=== PATIENT | male | born 1945 | race Caucasian/White ===

== ENCOUNTER 2016-12-15 12:43 | Emergency (ER) | payer BC ==
--- NOTE | 2016-12-15 14:15 | DIAGNOSTIC IMAGING REPORT ---
PROCEDURE: CT ABDOMEN/PELVIS W/O CONTRAST INDICATION: Left flank pain, initial encounter TECHNIQUE: Noncontrast axial images were obtained of the entire abdomen and pelvis with sagittal and coronal reformations. COMPARISON: None. FINDINGS: ABDOMEN: 6.5 mm left UVJ/bladder calculus with mild left hydroureteronephrosis. There are two additional nonobstructing left renal calculi (one - 2 mm) and four right renal calculi one - 6 mm). There are bilateral renal cysts. Lung bases are clear. Heart size is normal. Cholecystectomy. Liver, pancreas, spleen and adrenal glands are normal. Severe atherosclerosis of the aorta. There is a 4.3 x 2.4 cm central mesentery dense calcification suggestive of calcified lymph node. Small hiatal hernia. PELVIS: Normal appendix. Minor sigmoid diverticulosis. Enlarged prostate (6 cm). There is urinary bladder wall thickening which may be due to decompression versus inflammatory changes. Trace free fluid. Moderate degenerative changes of the spine. IMPRESSION: 1. 6.5 mm left UVJ/bladder calculus with mild left hydroureteronephrosis 2. Nonobstructing bilateral renal calculi 3. Bilateral renal cysts 4. Cholecystectomy 5. 4.3 x 2.4 cm central mesentery dense calcification suggestive of a calcified lymph node 6. Small hiatal hernia 7. Trace free fluid the pelvis, etiology uncertain 8. Minor sigmoid diverticulosis 9. Enlarged prostate 10. Results discussed with Marianna Griffin. All CT scans at this facility use dose modulation, iterative reconstruction, and/or weight-based dosing when appropriate to reduce radiation dose to as low as reasonably achievable.
--- NOTE | 2016-12-15 14:41 | ED ORDER SUMMARY ---
..... Patient: FABY SOFIA OrderSheet [facility] VisitID: [id number] [place] [address] 71y, M Registration Date/Time: 12/15/2016 ORDER SHEET Weight: 79.3 kg (stated) Allergies: No Known Drug Allergy GENERAL ORDERS: UA-Culture if indicated Urgent (13:04 12/15/2016 JBoardley R.N. per protocol) (Ack 13:05 KHoerner) (13:08 JBoardley R.N.) CT Abd/Pel wo Cont Urgent (13:17 12/15/2016 HBivens A.R.N.P.) (Ack 13:18 KHoerner) (13:20 EHassan R.N.) CBC w Diff Urgent (13:17 12/15/2016 HBivens A.R.N.P.) (Ack 13:18 KHoerner) (13:20 EHassan R.N.) CMP Urgent (13:17 12/15/2016 HBivens A.R.N.P.) (Ack 13:18 KHoerner) (13:20 EHassan R.N.) MEDICATION ORDERS: Toradol IM 30 mg (NOW) (13:17 12/15/2016 HBivens A.R.N.P.) (Cancelled: Other13:23 HBivens A.R.N.P.) IV FLUIDS: IV Saline Lock (13:04 12/15/2016 JBoardley R.N. per protocol) (13:04 JBoardley R.N.) IV NS : initial bolus 1000 mL (1000 mL/hr), then none - (NOW) (13:16 12/15/2016 HBivens A.R.N.P.) (13:21 EHassan R.N.) Toradol IV 30 mg (NOW) (13:23 12/15/2016 HBivens A.R.N.P.) (13:24 EHassan R.N.) Lopressor IV 5 mg (HIGH ALERT MEDICATION, NOW) (13:30 12/15/2016 HBivens A.R.N.P.) (13:36 EHassan R.N.) ORDER SHEET NOTES: [Electronically signed by Shamar Thompson R.N. (15:02 12/15/2016)] [Electronically signed by Marianna Griffin (16:40 12/15/2016)] [Electronically locked/signed by Shamar Thompson R.N. (15:02 12/15/2016)]
--- NOTE | 2016-12-15 14:41 | ED CLINICAL REPORT ---
Clinical Report - Physicians/Mid Levels [facility] [address] [place] [address] 12/15/2016 12:47 Patient: FABY SOFIA Time Seen: 13:07; initial patient contact, initial documentation, patient care assumed. Arrived- By private vehicle. Historian- patient. HISTORY OF PRESENT ILLNESS Chief Complaint: BACK PAIN. Onset was yesterday and it is still present. It was abrupt in onset and has been constant. Modifying factors. Not worsened by anything. Not relieved by anything. It is described as being severe and in the area of the left flank and radiating to the left upper quadrant of the abdomen. The quality is noted to be "pain" and similar to prior episodes. No bladder dysfunction, bowel dysfunction or sensory loss. Additional history - did not take his bp med last night. Patient denies an injury but injury to the head or neck. No other injury. Similar symptoms previously: Twice, as bad. ( feels similar to stones). Recent medical care: Not recently seen/assessed. REVIEW OF SYSTEMS No fever, difficulty with urination, urinary frequency, hematuria or difficulty breathing. No chest pain, abdominal pain, vomiting or diarrhea. All systems otherwise negative, except as recorded above. PAST HISTORY See nurses notes. PROBLEMS: Influenza. Myocardial Infarction. Hypercholesterolemia. --13:02 Shamar Thompson R.N. ADDITIONAL SURGERIES: Cardiac Catheterization. Cholecystectomy. --13:02 Shamar Thompson R.N. Stents. --13:03 Shamar Thompson R.N. SOCIAL HISTORY Heavy tobacco smoker. No alcohol use or drug use. No recent travel. Is a local resident. He lives with spouse. FAMILY HISTORY Negative. ADDITIONAL NOTES The nursing notes have been reviewed with agreement regarding the chief complaint, HPI, ROS, PMH and patient medications and allergies. PHYSICAL EXAM Vital Signs: 12/15/2016 12:59 BP: 225/125. HR: 87. RR: 18. O2 saturation: 98%. Temp: 97.5 F. Pain level now: 5/10. Have been reviewed as abnormal and appear to be correct. Hypertensive. Heart rate normal. Respiratory rate normal. Temperature normal. Oxygen saturation normal. Appearance: Alert. No acute distress. Neck: Normal inspection. Neck nontender. Painless ROM. CVS: Heart sounds normal. Pulses normal. Respiratory: No respiratory distress. Breath sounds normal. Abdomen: No visible injury. Soft and nontender. Bowel sounds normal. No organomegaly. No mass. Back: Normal inspection. No tenderness. Painless ROM. Skin: Skin warm and dry. Normal skin color. No rash. Normal skin turgor. Extremities: Extremities exhibit normal ROM. Extremities nontender. Neuro: Oriented X 3. Mood/affect normal. No motor deficit. No sensory deficit. LABS, X-RAYS, AND EKG CT Abdomen: . IMPRESSION: 1. 6.5 mm left UVJ/bladder calculus with mild left hydroureteronephrosis 2. Nonobstructing bilateral renal calculi 3. Bilateral renal cysts 4. Cholecystectomy 5. 4.3 x 2.4 cm central mesentery dense calcification suggestive of a calcified lymph node 6. Small hiatal hernia 7. Trace free fluid the pelvis, etiology uncertain 8. Minor sigmoid diverticulosis 9. Enlarged prostate 10. Results discussed with Marianna Griffin. All CT scans at this facility use dose modulation, iterative reconstruction, and/or weight-based dosing when appropriate to reduce radiation dose to as low as reasonably achievable. Electronically Final signed by:Jus Thacker MD 12/15/2016 2:15:26 PM. The study was interpreted by the radiologist and discussed with the radiologist. Laboratory Tests: . UA-Culture if indicated: (LUIS E: 12/15/2016 12:50) ( MsgRcvd 12/15/2016 13:21) Final results Test Result Flag Units (Reference) URINE COLOR YELLOW URINE APPEARANCE CLEAR URINE GLUCOSE NEGATIVE (NEGATIVE) URINE BILIRUBIN NEGATIVE (NEGATIVE) URINE KETONE NEGATIVE (NEGATIVE) URINE SPECIFIC GRAVITY <= 1.005 L (1.010-1.030) URINE PH 6.0 (5.0-8.0) URINE PROTEIN NEGATIVE (NEGATIVE) URINE UROBILINOGEN 0.2 EU/dL (0.2-1.0) URINE NITRITE NEGATIVE (NEGATIVE) URINE BLOOD TRACE-INTACT (NEGATIVE) URINE LEUK ESTERASE POSITIVE (NEGATIVE) URINE RBC 0-1 rbc/hpf (0-1) URINE WBC 3-5 wbc/hpf (0-1) URINE EPITHELIAL CELLS 1-3 EPI/hpf (0-5) URINE BACTERIA NONE SEEN (NONE SEEN) URINE COMMENT CULTURE INDICATED URINE CULTURES ARE SET-UP BASED ON THE FOLLOWING CRITERIA:POSITIVE NITRITEPOSITIVE LEUKOCYTE ESTERASEGREATER THAN 10 WHITE BLOOD CELLSMODERATE (2+) OR GREATER BACTERIA CBC w Diff: (LUIS E: 12/15/2016 13:00) ( [facility] 12/15/2016 14:12) Final results Test Result Flag Units (Reference) WHITE BLOOD COUNT 4.3 L K/uL (4.5-11.5) RED BLOOD COUNT 6.18 *H M/uL (4.50-5.90) HEMOGLOBIN 17.6 H gm/dL (13.5-17.5) HEMATOCRIT 53.5 H % (41.0-53.0) MEAN CELL VOLUME 87 fL (80-100) MEAN CORPUSCULAR HGB 29 pg (26-34) MEAN CORPUSCULAR HGB CONC 33 g/dL (31-37) RED CELL DISTRIBUTION WIDTH 14.2 % (11.6-14.8) PLATELET COUNT 168 K/uL (150-400) NEUTROPHIL % 65.5 % (50-75) LYMPH % 19.3 L % (25-40) MONO % 10.5 % (3-14) EOSINOPHIL % 3.7 % (0-4) BASOPHIL % 1.0 % (0-2) CMP: (LUIS E: 12/15/2016 13:00) ( [facility] 12/15/2016 13:46) Final results Test Result Flag Units (Reference) GLUCOSE 104 mg/dL (70-110) BUN 14 mg/dL (7-18) CREATININE 1.1 mg/dL (0.6-1.3) Estimated GFR >60 mL/min Estimated GFR- >60 mL/min Note: Persistent reduction over 3 months in eGFR<60 mL/min/1.73 m2 defines CKD. Patients with eGFR values>=60 mL/min/1.73 m2 may also have CKD if evidence ofpersistent proteinuria. Additional information may be foundat www.[email or web address].org. SODIUM 140 mmol/L (136-145) POTASSIUM 4.1 mmol/L (3.5-5.1) CHLORIDE 104 mmol/L (98-107) CARBON DIOXIDE 28 mmol/L (21-32) CALCIUM 8.8 mg/dL (8.5-10.1) TOTAL PROTEIN 7.8 g/dL (6.4-8.2) ALBUMIN 3.9 g/dL (3.3-5.0) BILIRUBIN, TOTAL 0.6 mg/dL (0.0-1.0) ALKALINE PHOSPHATASE 100 U/L (46-116) AST (SGOT) 19 U/L (15-37) ALT (SGPT) 21 U/L (12-78) . PROGRESS AND PROCEDURES Patient and spouse counseled in person regarding the patient's stable condition, test results and diagnosis. 1435. Differential Diagnosis: I considered Musculo-skeletal strain, contusion, disk protrusion, vertebral fracture, facet syndrome, sacroiliac joint strain, sciatica, renal injury, osteoarthritis, lumbar spondylosis, spinal stenosis, ankylosing spondylitis, sacroiliac joint inflammation, pyelonephritis, abdominal aortic aneurysm and ureterolithiasis as a possible cause of back pain in this patient. This is a partial list of diagnoses considered. Above considerations are based on history, physical exam, laboratory data and other information. Differential diagnosis was discussed with patient. Disposition: Discharged home in good and improved condition (14:40). Condition: good and stable. CLINICAL IMPRESSION 12/15/2016 14:30 BP: 148/76. HR: 56. RR: 15. O2 saturation: 99%. Pain level now: 10. Vital Signs: have been reviewed as normal and appear to be correct. Ureterolithiasis (multiple stones) in the left ureter and kidney with renal colic, hydronephrosis and urinary tract infection. No acute pyelonephritis or hematuria. Acute urinary tract infection. No cystitis, pyelonephritis or hematuria. Not associated with indwelling catheter or obstruction. Uncontrolled hypertension. INSTRUCTIONS Drink plenty of fluids. (over the counter vitamin c, strain all urine for stones, as discussed). Warnings: Further evaluation is necessary in order to conduct further tests and assess the possibility of serious illness. It is very important to follow up with a physician. GENERAL WARNINGS: Return or contact your physician immediately if your condition worsens or changes unexpectedly, if not improving as expected, or if other problems arise. SPECIFICALLY, return if you develop incontinence of urine (loss of bladder control). fever, abdominal pain. Prescription Medications: Zofran 4 mg: Take 1 orally every six hours as needed for nausea/vomiting. Dispense ten (10). No refills. Substitution is permissible. Cipro 500 mg: take 1 tab orally every 12 hours for 10 days. Dispense twenty (20). No refills. Substitution is permissible. [place] 5 mg / 325 mg tablets: take 1 to 2 orally every 6 hours as needed for pain. Dispense fifteen (15). No refills. Substitution is permissible. Toradol 10 mg tablets: Take 1 tablet orally every 6 hours as needed. Dispense fifteen (15). No refills. Substitution is permissible. Flomax 0.4 mg: take 1 orally every 24 hours. Dispense fifteen (15). No refills. Substitution is permissible. Follow-up: Follow up with your doctor in about two days even if well. Call for an appointment. Summary of care provided to patient and family. Screening today revealed the patient's blood pressure to be in the hypertensive range. The patient should follow up with a primary care provider for blood pressure management. Understanding of the discharge instructions verbalized by patient and family. Follow-up with: Sulaiman Thornton MD, Urology, , [address] [place] [address] , [place], [facility] Follow up in about two days as needed. Call for an appointment. Summary of care provided to patient and family. (Electronically signed by Marianna Griffin A.R.N.P. 12/15/2016 16:40)
--- NOTE | 2016-12-15 14:41 | ED ORDER SUMMARY ---
..... Patient: FABY SOFIA OrderSheet [facility] VisitID: [id number] [place] [address] 71y, M Registration Date/Time: 12/15/2016 ORDER SHEET Weight: 79.3 kg (stated) Allergies: No Known Drug Allergy GENERAL ORDERS: UA-Culture if indicated Urgent (13:04 12/15/2016 JBoardley R.N. per protocol) (Ack 13:05 KHoerner) (13:08 JBoardley R.N.) CT Abd/Pel wo Cont Urgent (13:17 12/15/2016 HBivens A.R.N.P.) (Ack 13:18 KHoerner) (13:20 EHassan R.N.) CBC w Diff Urgent (13:17 12/15/2016 HBivens A.R.N.P.) (Ack 13:18 KHoerner) (13:20 EHassan R.N.) CMP Urgent (13:17 12/15/2016 HBivens A.R.N.P.) (Ack 13:18 KHoerner) (13:20 EHassan R.N.) MEDICATION ORDERS: Toradol IM 30 mg (NOW) (13:17 12/15/2016 HBivens A.R.N.P.) (Cancelled: Other13:23 HBivens A.R.N.P.) IV FLUIDS: IV Saline Lock (13:04 12/15/2016 JBoardley R.N. per protocol) (13:04 JBoardley R.N.) IV NS : initial bolus 1000 mL (1000 mL/hr), then none - (NOW) (13:16 12/15/2016 HBivens A.R.N.P.) (13:21 EHassan R.N.) Toradol IV 30 mg (NOW) (13:23 12/15/2016 HBivens A.R.N.P.) (13:24 EHassan R.N.) Lopressor IV 5 mg (HIGH ALERT MEDICATION, NOW) (13:30 12/15/2016 HBivens A.R.N.P.) (13:36 EHassan R.N.) ORDER SHEET NOTES: [Electronically signed by Shamar Thompson R.N. (15:02 12/15/2016)] [Electronically signed by Marianna Griffin (16:40 12/15/2016)] [Electronically locked/signed by Shamar Thompson R.N. (15:02 12/15/2016)]
--- NOTE | 2016-12-15 14:41 | ED NURSING NOTES ---
Clinical Report - Nurses [facility] [address] [place] [address] 12/15/2016 12:47 Patient: FABY SOFIA TRIAGE Triage time 13:00. Acuity: LEVEL 3. Chief Complaint: FLANK PAIN. 13:00 12/15/16. 13:00 12/15/16. Alert. No acute distress. ( Left side flank pain that started yesterday. Pt did not take blood pressure meds this AM.). SEPSIS SCREEN: Sepsis Screen. Negative (no infection suspected/documented). --13:03 Shamar Thompson R.N. 12:59 12/15/16. BP: 225/125. HR: 87. RR: 18. O2 saturation: 98% on room air. Temp: 97.5 F (oral). Pain level now: 02/10. --13:03 Shamar Thompson R.N. Weight: 79.3 kg stated. Height/Length: 71 inches Per Patient. BMI: 24.4. --13:00 Shamar Thompson R.N. Medications AmLODIPine Besylate Oral. Atorvastatin Calcium Oral. Lisinopril-Hydrochlorothiazide Oral. Metoprolol Tartrate Oral. --13:02 Shamar Thompson R.N. ASA Oral. --13:02 Shamar Thompson R.N. Medication/allergy information source: the patient. --13:03 Shamar Thompson R.N. Allergies No Known Drug Allergy. --13:02 Shamar Thompson R.N. History Arrived by private vehicle. Historian: patient. Accompanied by family. Primary physician (CHRISTINE HOANG). 13:00 12/15/16. This started yesterday. Treatment ESTIMATOR PAPERBOARD BOXES: None. PAST MEDICAL HX: Immunizations: up-to-date. SOCIAL HX: Current every day heavy tobacco smoker (cigarette)- less than 1 pack per day. No alcohol use or drug use. No recent travel. No infectious disease exposure. No known contact with a sick individual. ABUSE ASSESSMENT: No report of abuse. FALL RISK ASSESSMENT: Fall risk assessment completed. No fall risk identified. NUTRITIONAL RISK ASSESSMENT: The nutritional risk assessment revealed no deficiencies. FUNCTIONAL ASSESSMENT: Functional assessment: no impairments noted. LEARNING NEEDS ASSESSMENT: The learning needs assessment revealed no barriers. SKIN INTEGRITY ASSESSMENT: Skin integrity risk assessment completed. No skin integrity risk identified. --13:03 Shamar Thompson R.N. PROBLEMS: Influenza. Myocardial Infarction. Hypercholesterolemia. --13:02 Shamar Thompson R.N. ADDITIONAL SURGERIES: Cardiac Catheterization. Cholecystectomy. --13:02 Shamar Thompson R.N. Stents. --13:03 Shamar Thompson R.N. The following entry was struck by Shamar Thompson R.N., 13:03 <<STRICKEN ENTRY-- Stents. --13:02 Shamar Thompson R.N. --END STRIKE>>. Assessment 13:12/15/16. --13:03 Shamar Thompson R.N. Interventions 13:12/15/16. 13:00 12/15/16. ID and allergy band on patient. To treatment room. --13:03 Shamar Thompson R.N. PHYSICAL ASSESSMENT 13:03 12/15/16. Ambulatory to room. GENERAL / NEURO / PSYCH: Alert. Oriented X 4. Appears in pain. RESPIRATORY: Respirations not labored. CVS: Capillary refill less than 2 seconds. SKIN: Skin is warm and dry. --13:03 Shamar Thompson R.N. NURSING PROGRESS NOTES 13:12/15/2016 Site #1 started via IV in the right forearm with an 20g angiocath, with aseptic technique and good blood return; one attempt. Blood drawn: rainbow set. Labeled in the presence of the patient and sent to the lab. Saline lock flushed with 10 mL saline. --13:04 Shamar Thompson R.N. 13:04 12/15/16. The plan of care for this patient has been created. Pulse oximeter and NIBP monitor placed on patient; monitor alarms on. Patient gowned. Head of bed elevated. Reassurance given. Two patient identifiers checked. Call light placed in reach. Side rails up x 2. Bed placed in lowest position. Brakes of bed on. Brakes of chair on. --13:04 Shamar Thompson R.N. 13:04 12/15/16. Patient ready for evaluation- chart flagged and ED physician notified. --13:04 Shamar Thompson R.N. Care transferred (Dalia Montilla). --13:12 Dalia Montilla R.N. 13:06 12/15/2016 Started bag #1 1000 mL IV Fluids IV NS (Saline); at 1000 mL/hr over 1 hour(s) via site #1 via dial-a-flow. Allergies verified and confirmed 5 rights. IV patency established. IV site checked: no pain, redness, or swelling. IV flushed thoroughly pre- and post-medication administration. Completed per protocol. --13:21 Dalia Montilla R.N. 13:20 12/15/16. BP: 199/127 (regular adult cuff) taken on the left arm, via an automated monitor, while lying. HR: 72. RR: 12. O2 saturation: 97% on room air. Pain level now: 03/13. --13:22 Dalia Montilla R.N. Pulse oximeter and NIBP monitor placed on patient. Reassurance given. Reassessment after fluids administered. He is calm. Overall patient status is the same- he states feels the same. GI / : The patient reports abdominal pain. --13:22 Dalia Montilla R.N. 13:24 12/15/2016 Toradol IVP 30 mg given over 30 second(s) via site #1. Allergies verified and confirmed 5 rights. IV patency established. IV site checked: no pain, redness, or swelling. IV flushed thoroughly pre- and post-medication administration. IVP given by RN. --13:24 Dalia Montilla R.N. Patient transported to CT by stretcher. (1327 PM). --13:27 Dalia Montilla R.N. 13:36 12/15/2016 Lopressor (Metoprolol Tartrate) IVP 5 mg given over 5 minute(s) via site #1. Allergies verified and confirmed 5 rights. IV patency established. IV site checked: no pain, redness, or swelling. IV flushed thoroughly pre- and post-medication administration. IVP given by RN. --13:36 Dalia Montilla R.N. Pulse oximeter and NIBP monitor placed on patient. Reassurance given. Reassessment after medication administered. He has had no adverse reaction. Overall patient status is improved- he states feels better. ( Lopressor given, pt tolerated well, VSS). GI / : Denies nausea. Patient returned from CT. (1335 PM). Patient identifiers checked. Call light placed in reach. --13:38 Dalia Montilla R.N. 13:37 12/15/16. BP: 163/98. HR: 71. RR: 15. O2 saturation: 99%. Pain level now: 12/11. --13:38 Dalia Montilla R.N. 13:40 12/15/16. BP: 171/87 (regular adult cuff) taken on the left arm, via an automated monitor, while lying. HR: 55. RR: 15. O2 saturation: 98%. Pain level now: 12/11. --13:44 Dalia Montilla R.N. Pulse oximeter and NIBP monitor placed on patient. Reassurance given. The patient is calm. Patient waiting for CT results. --13:44 Dalia Montilla R.N. 14:30 12/15/16. BP: 148/76. HR: 56. RR: 15. O2 saturation: 99% on room air. Pain level now: 10/13. --14:42 Dalia Montilla R.N. Pulse oximeter and NIBP monitor placed on patient. Reassurance given. The patient is calm. Overall patient status is improved- he states feels better. ( Aware of kidney stones, SBP down to 148/76, no dizziness). GI / : The patient reports abdominal pain. --14:42 Dalia Montilla R.N. 14:58 12/15/2016 Site #1 removed upon discharge. Catheter intact. --14:59 Shamar Thompson R.N. 14:58 12/15/2016 IV Fluids IV NS Discontinued: bag #1 infused. Total amount infused: 950 mL. IV patency established. IV site checked: no pain, redness, or swelling. IV flushed thoroughly. --14:58 Shamar Thompson R.N. 15:02 12/15/16. ( Pt given urine strainer, specimen cup and educated to provide passed stone to PCP. Pt educated on how to strain urine.). --15:02 Shamar Thompson R.N. DISPOSITION / DISCHARGE 15:00 12/15/16. The goals identified in the patient's plan of care were met. No learning barriers present. Discharge instructions provided and reviewed with the patient and spouse. Reviewed warnings. Reviewed medication(s). Treatments reviewed. Reviewed referral to a urologist. Patient verbalized understanding. Written instructions provided in Yi. The patient was discharged by the nurse practitioner. He was discharged home and accompanied by spouse. He left the Emergency Department ambulatory and via private vehicle. Spouse driving. FALL RISK ASSESSMENT: Fall risk assessment completed. No fall risk identified. --15:00 Shamar Thompson R.N. 14:59 12/15/16. BP: 158/88. HR: 66. RR: 14. O2 saturation: 99% on room air. Temp: 97.7 F (oral). Pain level now: 0/10. --15:00 Shamar Thompson R.N. 15:00 12/15/16. Departure time: 15:00. --15:00 Shamar Thompson R.N. Locked/Released at 12/15/2016 15:02 by Shamar Thompson R.N.
--- NOTE | 2016-12-15 16:40 | ED DISCHARGE INSTRUCTIONS ---
Patient: FABY SOFIA General Instructions [facility] VisitID: [id number] [place] [address] 71y, M Registration Date/Time: 12/15/2016 12/15/2016 14:30 BP: 148/76. HR: 56. RR: 15. O2 saturation: 99%. Pain level now: 10/13. Vital Signs: have been reviewed as normal and appear to be correct. Ureterolithiasis (multiple stones) in the left ureter and kidney with renal colic, hydronephrosis and urinary tract infection. No acute pyelonephritis or hematuria. Acute urinary tract infection. No cystitis, pyelonephritis or hematuria. Not associated with indwelling catheter or obstruction. Uncontrolled hypertension. INSTRUCTIONS Drink plenty of fluids. (over the counter vitamin c, strain all urine for stones, as discussed). Warnings: Further evaluation is necessary in order to conduct further tests and assess the possibility of serious illness. It is very important to follow up with a physician. GENERAL WARNINGS: Return or contact your physician immediately if your condition worsens or changes unexpectedly, if not improving as expected, or if other problems arise. SPECIFICALLY, return if you develop incontinence of urine (loss of bladder control). fever, abdominal pain. Prescription Medications: Zofran 4 mg: Take 1 orally every six hours as needed for nausea/vomiting. Dispense ten (10). No refills. Substitution is permissible. Cipro 500 mg: take 1 tab orally every 12 hours for 10 days. Dispense twenty (20). No refills. Substitution is permissible. [place] 5 mg / 325 mg tablets: take 1 to 2 orally every 6 hours as needed for pain. Dispense fifteen (15). No refills. Substitution is permissible. Toradol 10 mg tablets: Take 1 tablet orally every 6 hours as needed. Dispense fifteen (15). No refills. Substitution is permissible. Flomax 0.4 mg: take 1 orally every 24 hours. Dispense fifteen (15). No refills. Substitution is permissible. Follow-up: Follow up with your doctor in about two days even if well. Call for an appointment. Summary of care provided to patient and family. Screening today revealed the patient's blood pressure to be in the hypertensive range. The patient should follow up with a primary care provider for blood pressure management. Understanding of the discharge instructions verbalized by patient and family. Follow-up with: Sulaiman Thornton MD, Urology, , [address] [facility], , [place], [address] Follow up in about two days as needed. Call for an appointment. Summary of care provided to patient and family. ADDITIONAL INFORMATION Bladder Infection,Male (Adult) A bladder infection ("cystitis" or "UTI") usually causes a constant urge to urinate, and a burning when passing urine. Urine may be cloudy, smelly or dark. There may be also be pain in the lower abdomen. Cystitis in males is not common. It may be caused by a partial blockage in the urinary system that keeps the bladder from emptying completely. This is most often related to an enlarged prostate gland. Home Care: Drink lots of fluids (at least 6-8 glasses a day). This will flush the bacteria out of your bladder. Avoid sexual intercourse until your symptoms are gone. Avoid caffeine, alcohol, and spicy foods. They could irritate the bladder. A bladder infection is treated with antibiotics. You may also be given Pyridium (generic - phenazopyridine) to reduce burning with urination. This will cause urine to become a bright orange color, which can stain clothing. Follow Up with your doctor or this facility if ALL symptoms have not cleared within five days. It is important to keep your follow up appointment to discuss with your doctor the need for further tests of the urinary tract. Get Prompt Medical Attention if any of the following occur: Fever of 100.4F (38C) or higher, or as directed by your healthcare provider No improvement by the third day of treatment Increasing back or abdominal pain Repeated vomiting; unable to keep medicine down Weakness, dizziness or fainting Kidney Stone (W/ Colic) The sharp cramping pain and nausea/vomiting that you have is due to a small stone which has formed in the kidney and is now passing down a narrow tube (ureter) on its way to your bladder. Once it reaches your bladder, the pain will stop. The stone may pass in your urine stream in one piece. [The size may be 1/16" to 1/4" (1-6mm)]. Or, the stone may also break up into karl fragments which you may not even notice. Once you have had a kidney stone, you are at risk for developing another one in the future. Home Care: Drink plenty of fluids (at least 8 to 10 glasses of water a day). Most stones will pass on their own, but may take from a few hours to a few days. Sometimes the stone is too large to pass by itself and special methods will have to be used to remove the stone. Each time you urinate, do so in a jar. Pour the urine from the jar through the strainer and into the toilet. Continue doing this until 24 hours after your pain stops. By then, if there was a kidney stone, it should pass from your bladder. Some stones dissolve into sand-like particles and pass right through the strainer. In that case, you wont ever see a stone. Save any stone that you find in the strainer and bring it to your doctor for analysis. It may be possible to prevent certain types of stones from forming. Therefore, it is important to know what kind of stone you have. Try to stay as active as possible since this will help the stone pass. Do not stay in bed unless your pain prevents you from getting up. You may notice a red, pink or brown color to your urine. This is normal while passing a kidney stone. Follow Up with your doctor or return to this facility if the pain lasts more than 48 hours. Get Prompt Medical Attention if any of the following occur: Pain that is not controlled by the medicine given Repeated vomiting or unable to keep down fluids Weakness, dizziness or fainting Fever of 100.4F (38C) or higher, or as directed by your healthcare provider Passage of solid red or brown urine (can't see through it) or urine with lots of blood clots Unable to pass urine for 8 hours and increasing bladder pressure Hypertension, Out Of Control (Established) Your blood pressure was unusually high today. This can occur as a result of missing doses of your blood pressure medicine. Some asthma inhalers, decongestants, diet pills, and street drugs such as cocaine and amphetamine can worsen hypertension. An increase in body weight, increase in salt intake, smoking, and caffeine are other causes. Emotional upset or acute pain can cause a sudden rapid rise in blood pressure which may return to normal after a period of rest. A normal blood pressure is less than 140/90. The first (top) number is the systolic pressure. The second (bottom) number is the diastolic pressure. Hypertension exists when either the top number is 140 or higher, OR the bottom number is 90 or higher on repeated measurements. Home Care: All patients with high blood pressure should do the following to lower their pressure. If you are on blood pressure medicines, then these methods may reduce or eliminate your need for medicines in the future. Begin a weight-loss program if you are overweight. Reduce your salt intake. Avoid high-salt foods (olives, pickles, smoked meats, salted potato chips, etc.). Do not add salt to your food at the table. Use only small amounts of salt when cooking. Begin an exercise program. Discuss with your doctor what type of exercise program would be best for you. It doesnt have to be difficult. Even brisk walking for 20 minutes3 times a week is a good form of exercise. Avoid medicines which contain heart stimulants. This includes many cold and sinus decongestant pills and sprays as well as diet pills. Check the warnings about hypertension on the label. Stimulants such as amphetamine or cocaine could be lethal for someone with hypertension. Never take these. Limit your caffeine intake or switch to decaf. Stop smoking. If you are a long-time smoker, this can be hard. Enroll in a stop-smoking program to improve your chance of success. Talk to your physician about ways to improve your chance of success. Learning how to handle stress better is an important part of any program to lower blood pressure. Learn about relaxation methods such as meditation, yoga, or biofeedback. If medicines were prescribed, take them exactly as directed. Missing doses may cause your blood pressure to get out of control. Consider buying an automatic blood pressure machine (available at many pharmacies). Use this to monitor your blood pressure and report to your doctor. Follow Up: Regular visits to your own doctor for blood pressure checks and medicine adjustment is an important part of your care. Make a follow-up appointment as directed by our staff. Get Prompt Medical Attention if any of the following occur: Chest, arm, shoulder, neck, or upper back pain Shortness of breath Severe headache Throbbing or rushing sound in the ears Nosebleed Extreme drowsiness, confusion, or fainting Dizziness or vertigo (dizziness with spinning sensation) Weakness of an arm or leg or one side of the face Difficulty with speech or vision Ondansetron Oral disintegrating tablet What is this medicine? ONDANSETRON (on GAYE se mehdi) is used to treat nausea and vomiting caused by chemotherapy. It is also used to prevent or treat nausea and vomiting after surgery. How should I use this medicine? These tablets are made to dissolve in the mouth. Do not try to push the tablet through the foil backing. With dry hands, peel away the foil backing and gently remove the tablet. Place the tablet in the mouth and allow it to dissolve, then swallow. While you may take these tablets with water, it is not necessary to do so. Talk to your supervisor melt house regarding the use of this medicine in children. Special care may be needed. What side effects may I notice from receiving this medicine? Side effects that you should report to your doctor or health career services officer as soon as possible: allergic reactions like skin rash, itching or hives, swelling of the face, lips, or tongue breathing problems dizziness fast or irregular heartbeat feeling faint or lightheaded, falls fever and chills swelling of the hands and feet tightness in the chest Side effects that usually do not require medical attention (report to your doctor or health career services officer if they continue or are bothersome): constipation or diarrhea headache What may interact with this medicine? Do not take this medicine with any of the following medications: -apomorphine -cisapride -dofetilide -dronedarone -pimozide -thioridazine -ziprasidone This medicine may also interact with the following medications: -carbamazepine -phenytoin -rifampicin -tramadol -other medicines that prolong the QT interval (cause an abnormal heart rhythm) What if I miss a dose? If you miss a dose, take it as soon as you can. If it is almost time for your next dose, take only that dose. Do not take double or extra doses. Where should I keep my medicine? Keep out of the reach of children. Store between 2 and 30 degrees C (36 and 86 degrees F). Throw away any unused medicine after the expiration date. What should I tell my health care provider before I take this medicine? They need to know if you have any of these conditions: heart disease history of irregular heartbeat liver disease low levels of magnesium or potassium in the blood an unusual or allergic reaction to ondansetron, granisetron, other medicines, foods, dyes, or preservatives or trying to get breast-feeding What should I watch for while using this medicine? Check with your doctor or health career services officer as soon as you can if you have any sign of an allergic reaction. Ciprofloxacin Hydrochloride Oral tablet What is this medicine? CIPROFLOXACIN (sip cheko FLOX a sin) is a quinolone antibiotic. It is used to treat certain kinds of bacterial infections. It will not work for colds, flu, or other viral infections. How should I use this medicine? Take this medicine by mouth with a glass of water. Follow the directions on the prescription label. Take your medicine at regular intervals. Do not take your medicine more often than directed. Take all of your medicine as directed even if you think your are better. Do not skip doses or stop your medicine early. You can take this medicine with food or on an empty stomach. It can be taken with a meal that contains dairy or calcium, but do not take it alone with a dairy product, like milk or yogurt or calcium-fortified juice. A special MedGuide will be given to you by the pharmacist with each prescription and refill. Be sure to read this information carefully each time. Talk to your supervisor melt house regarding the use of this medicine in children. Special care may be needed. What side effects may I notice from receiving this medicine? Side effects that you should report to your doctor or health career services officer as soon as possible: - allergic reactions like skin rash, itching or hives, swelling of the face, lips, or tongue - breathing problems - confusion, nightmares or hallucinations - feeling faint or lightheaded, falls - irregular heartbeat - joint, muscle or tendon pain or swelling - pain or trouble passing urine -persistent headache with or without blurred vision - redness, blistering, peeling or loosening of the skin, including inside the mouth - seizure - unusual pain, numbness, tingling, or weakness Side effects that usually do not require medical attention (report to your doctor or health career services officer if they continue or are bothersome): - diarrhea - nausea or stomach upset - white patches or sores in the mouth What may interact with this medicine? Do not take this medicine with any of the following medications: cisapride droperidol terfenadine tizanidine This medicine may also interact with the following medications: antacids caffeine cyclosporin didanosine (ddI) buffered tablets or powder medicines for diabetes medicines for inflammation like ibuprofen, naproxen methotrexate multivitamins omeprazole phenytoin probenecid sucralfate theophylline warfarin What if I miss a dose? If you miss a dose, take it as soon as you can. If it is almost time for your next dose, take only that dose. Do not take double or extra doses. Where should I keep my medicine? Keep out of the reach of children. Store at room temperature below 30 degrees C (86 degrees F). Keep container tightly closed. Throw away any unused medicine after the expiration date. What should I tell my health care provider before I take this medicine? They need to know if you have any of these conditions: -bone problems -cerebral disease -joint problems -irregular heartbeat -kidney disease -liver disease -myasthenia gravis -seizure disorder -tendon problems -an unusual or allergic reaction to ciprofloxacin, other antibiotics or medicines, foods, dyes, or preservatives - or trying to get -breast-feeding What should I watch for while using this medicine? Tell your doctor or health career services officer if your symptoms do not improve. Do not treat diarrhea with over the counter products. Contact your doctor if you have diarrhea that lasts more than 2 days or if it is severe and watery. You may get drowsy or dizzy. Do not drive, use machinery, or do anything that needs mental alertness until you know how this medicine affects you. Do not stand or sit up quickly, especially if you are an older patient. This reduces the risk of dizzy or fainting spells. This medicine can make you more sensitive to the sun. Keep out of the sun. If you cannot avoid being in the sun, wear protective clothing and use sunscreen. Do not use sun lamps or tanning beds/booths. Avoid antacids, aluminum, calcium, iron, magnesium, and zinc products for 6 hours before and 2 hours after taking a dose of this medicine. Hydrocodone Bitartrate, Acetaminophen Oral tablet What is this medicine? ACETAMINOPHEN; HYDROCODONE (a set a FRANKLIN alejandro fen; dee droe KOE done) is a pain reliever. It is used to treat mild to moderate pain. How should I use this medicine? Take this medicine by mouth. Swallow it with a full glass of water. Follow the directions on the prescription label. If the medicine upsets your stomach, take the medicine with food or milk. Do not take more than you are told to take. Talk to your supervisor melt house regarding the use of this medicine in children. This medicine is not approved for use in children. What side effects may I notice from receiving this medicine? Side effects that you should report to your doctor or health career services officer as soon as possible: allergic reactions like skin rash, itching or hives, swelling of the face, lips, or tongue breathing problems confusion feeling faint or lightheaded, falls stomach pain yellowing of the eyes or skin Side effects that usually do not require medical attention (report to your doctor or health career services officer if they continue or are bothersome): nausea, vomiting stomach upset What may interact with this medicine? alcohol antihistamines isoniazid medicines for depression, anxiety, or psychotic disturbances medicines for sleep muscle relaxants naltrexone narcotic medicines (opiates) for pain phenobarbital ritonavir tramadol What if I miss a dose? If you miss a dose, take it as soon as you can. If it is almost time for your next dose, take only that dose. Do not take double or extra doses. Where should I keep my medicine? Keep out of the reach of children. This medicine can be abused. Keep your medicine in a safe place to protect it from theft. Do not share this medicine with anyone. Selling or giving away this medicine is dangerous and against the law. Store at room temperature between 15 and 30 degrees C (59 and 86 degrees F). Protect from light. Keep container tightly closed. Throw away any unused medicine after the expiration date. Discard unused medicine and used packaging carefully. Pets and children can be harmed if they find used or lost packages. What should I tell my health care provider before I take this medicine? They need to know if you have any of these conditions: brain tumor Crohn's disease, inflammatory bowel disease, or ulcerative colitis drink more than 3 alcohol-containing drinks per day drug abuse or addiction head injury heart or circulation problems kidney disease or problems going to the bathroom liver disease lung disease, asthma, or breathing problems an unusual or allergic reaction to acetaminophen, hydrocodone, other opioid analgesics, other medicines, foods, dyes, or preservatives or trying to get breast-feeding What should I watch for while using this medicine? Tell your doctor or health career services officer if your pain does not go away, if it gets worse, or if you have new or a different type of pain. You may develop tolerance to the medicine. Tolerance means that you will need a higher dose of the medicine for pain relief. Tolerance is normal and is expected if you take the medicine for a long time. Do not suddenly stop taking your medicine because you may develop a severe reaction. Your body becomes used to the medicine. This does NOT mean you are addicted. Addiction is a behavior related to getting and using a drug for a non-medical reason. If you have pain, you have a medical reason to take pain medicine. Your doctor will tell you how much medicine to take. If your doctor wants you to stop the medicine, the dose will be slowly lowered over time to avoid any side effects. You may get drowsy or dizzy when you first start taking the medicine or change doses. Do not drive, use machinery, or do anything that may be dangerous until you know how the medicine affects you. Stand or sit up slowly. There are different types of narcotic medicines (opiates) for pain. If you take more than one type at the same time, you may have more side effects. Give your health care provider a list of all medicines you use. Your doctor will tell you how much medicine to take. Do not take more medicine than directed. Call emergency for help if you have problems breathing. The medicine will cause constipation. Try to have a bowel movement at least every 2 to 3 days. If you do not have a bowel movement for 3 days, call your doctor or health career services officer. Too much acetaminophen can be very dangerous. Do not take Tylenol (acetaminophen) or medicines that contain acetaminophen with this medicine. Many non-prescription medicines contain acetaminophen. Always read the labels carefully. Ketorolac Tromethamine Oral tablet What is this medicine? KETOROLAC (robin toe ROLE ak) is a non-steroidal anti-inflammatory drug (NSAID). It is used for a short while to treat moderate to severe pain, including pain after surgery. It should not be used for more than 5 days. How should I use this medicine? Take this medicine by mouth with a full glass of water. Follow the directions on the prescription label. Take your medicine at regular intervals. Do not take your medicine more often than directed. Do not take more than the recommended dose. A special MedGuide will be given to you by the pharmacist with each prescription and refill. Be sure to read this information carefully each time. Talk to your supervisor melt house regarding the use of this medicine in children. While this drug may be prescribed for children as young as 16 years of age for selected conditions, precautions do apply. Patients over 65 years old may have a stronger reaction and need a smaller dose. What side effects may I notice from receiving this medicine? Side effects that you should report to your doctor or health career services officer as soon as possible: allergic reactions like skin rash, itching or hives, swelling of the face, lips, or tongue black or tarry stools breathing problems changes in vision chest pain high blood pressure nausea or vomiting redness, blistering, peeling or loosening of the skin, including inside the mouth severe abdominal pain slurred speech or weakness on one side of the body unexplained weight gain or swelling unusual bleeding or bruising unusually weak or tired yellowing of eyes or skin Side effects that usually do not require medical attention (report to your doctor or health career services officer if they continue or are bothersome): diarrhea dizziness headache heartburn What may interact with this medicine? Do not take this medicine with any of the following medications: aspirin and aspirin-like medicines cidofovir methotrexate NSAIDs, medicines for pain and inflammation, like ibuprofen or naproxen pemetrexed probenecid This medicine may also interact with the following medications: alcohol alendronate alprazolam carbamazepine cyclosporine diuretics flavocoxid fluoxetine ginkgo lithium medicines for high blood pressure like enalapril medicines that affect platelets like pentoxifylline medicines that treat or prevent blood clots like heparin, warfarin muscle relaxants phenytoin steroid medicines like prednisone or cortisone thiothixene What if I miss a dose? If you miss a dose, take it as soon as you can. If it is almost time for your next dose, take only that dose. Do not take double or extra doses. Where should I keep my medicine? Keep out of the reach of children. Store at room temperature between 20 and 25 degrees C (68 and 77 degrees F). Throw away any unused medicine after the expiration date. What should I tell my health care provider before I take this medicine? They need to know if you have any of these conditions: asthma bleeding problems like hemophilia cigarette smoker drink more than 3 alcohol containing drinks a day heart disease or circulation problems such as heart failure or leg edema (fluid retention) high blood pressure kidney disease liver disease stomach bleeding or ulcers an unusual or allergic reaction to ketorolac, aspirin, other NSAIDs, other medicines, foods, dyes, or preservatives or trying to get breast-feeding What should I watch for while using this medicine? Tell your doctor or health career services officer if your pain does not get better. Talk to your doctor before taking another medicine for pain. Do not treat yourself. This medicine does not prevent heart attack or stroke. In fact, this medicine may increase the chance of a heart attack or stroke. The chance may increase with longer use of this medicine and in people who have heart disease. If you take aspirin to prevent heart attack or stroke, talk with your doctor or health career services officer. Do not take medicines such as ibuprofen and naproxen with this medicine. Side effects such as stomach upset, nausea, or ulcers may be more likely to occur. Many medicines available without a prescription should not be taken with this medicine. This medicine can cause ulcers and bleeding in the stomach and intestines at any time during treatment. Do not smoke cigarettes or drink alcohol. These increase irritation to your stomach and can make it more susceptible to damage from this medicine. Ulcers and bleeding can happen without warning symptoms and can cause . You may get drowsy or dizzy. Do not drive, use machinery, or do anything that needs mental alertness until you know how this medicine affects you. Do not stand or sit up quickly, especially if you are an older patient. This reduces the risk of dizzy or fainting spells. This medicine can cause you to bleed more easily. Try to avoid damage to your teeth and gums when you brush or floss your teeth. You have been given the following additional information: Bladder Infection, Male (Adult) Kidney Stone W/ Colic Hypertension, Established, Out Of Control Ondansetron Oral disintegrating tablet Ciprofloxacin Hydrochloride Oral tablet Hydrocodone Bitartrate, Acetaminophen Oral tablet Ketorolac Tromethamine Oral tablet (Electronically signed by Marianna Griffin A.R.N.P. 12/15/2016 16:40)
--- NOTE | 2016-12-15 16:41 | ED MAR SUMMARY ---
..... Medication Administration Record [facility] [address] [place] [address] Patient: FABY SOFIA Visit ID: [id number] 71y, M Weight: 79.3 kg Height/Length: 71 in BMI: 24.4 ALLERGIES: No Known Drug Allergy Start 13:06 12/15/2016 Dalia Montilla R.N., Stop 14:58 12/15/2016 Shamar Thompson R.N. Medication Administered: IV NS (SALINE), Dose: IV Fluids over 1 hour(s), Rate: 1000 mL/hr, Dispensed: 1000 mL bag, Site: #1 right forearm. Medication Ordered: IV NS : initial bolus 1000 mL (1000 mL/hr), then none - (NOW). Given 13:24 12/15/2016 Dalia Montilla R.N. Medication Administered: TORADOL [IVP], Dose: 30 mg IVP over 30 second(s), Site: #1 right forearm. Medication Ordered: Toradol IV 30 mg (NOW). Given 13:36 12/15/2016 Dalia Montilla RPhilippNPhilipp Medication Administered: LOPRESSOR [IVP] (METOPROLOL TARTRATE), Dose: 5 mg IVP over 5 minute(s), Site: #1 right forearm. Medication Ordered: Lopressor IV 5 mg (HIGH ALERT MEDICATION, NOW).
--- NOTE | 2016-12-15 16:41 | ED MAR SUMMARY ---
..... Medication Administration Record [facility] [address] [place] [address] Patient: FABY SOFIA Visit ID: [id number] 71y, M Weight: 79.3 kg Height/Length: 71 in BMI: 24.4 ALLERGIES: No Known Drug Allergy Start 13:06 12/15/2016 Dalia Montilla R.N., Stop 14:58 12/15/2016 Shamar Thompson R.N. Medication Administered: IV NS (SALINE), Dose: IV Fluids over 1 hour(s), Rate: 1000 mL/hr, Dispensed: 1000 mL bag, Site: #1 right forearm. Medication Ordered: IV NS : initial bolus 1000 mL (1000 mL/hr), then none - (NOW). Given 13:24 12/15/2016 Dalia Montilla R.N. Medication Administered: TORADOL [IVP], Dose: 30 mg IVP over 30 second(s), Site: #1 right forearm. Medication Ordered: Toradol IV 30 mg (NOW). Given 13:36 12/15/2016 Dalia Montilla RPhilippNPhilipp Medication Administered: LOPRESSOR [IVP] (METOPROLOL TARTRATE), Dose: 5 mg IVP over 5 minute(s), Site: #1 right forearm. Medication Ordered: Lopressor IV 5 mg (HIGH ALERT MEDICATION, NOW).
--- NOTE | 2016-12-15 16:41 | ED MED RECONCILIATION SUMMARY ---
Patient: FABY SOFIA Medication Reconciliation Report [facility] VisitID: [id number] [place] [address] 71y, M Registration Date/Time: 12/15/2016 Weight: 79.3 kg Height/Length: 71 in. BMI: 24.4 ALLERGIES: No Known Drug Allergy The patient's Home Medications are listed below: THE FOLLOWING MEDICATIONS NEED TO BE RECONCILED: AmLODIPine Besylate Oral ASA Oral Atorvastatin Calcium Oral Lisinopril-Hydrochlorothiazide Oral Metoprolol Tartrate Oral The source(s) of the original Home Medication information: patient The following Medications were given to the patient in the Emergency Department: IV NS IV Fluids bolus 0, then 1000 mL/hr, administered: 12/15/2016 1:06:00 PM Toradol [IVP] IVP 30 mg, administered: 12/15/2016 1:24:00 PM Lopressor [IVP] IVP 5 mg, administered: 12/15/2016 1:36:00 PM The following Medications were prescribed to the patient: Zofran 4 mg: Take 1 orally every six hours as needed for nausea/vomiting. Dispense ten (10). No refills. Substitution is permissible. -- Marianna Griffin A.R.N.P. Cipro 500 mg: take 1 tab orally every 12 hours for 10 days. Dispense twenty (20). No refills. Substitution is permissible. -- Marianna Griffin A.R.N.P. [place] 5 mg / 325 mg tablets: take 1 to 2 orally every 6 hours as needed for pain. Dispense fifteen (15). No refills. Substitution is permissible. -- Marianna Griffin A.R.N.P. Toradol 10 mg tablets: Take 1 tablet orally every 6 hours as needed. Dispense fifteen (15). No refills. Substitution is permissible. -- Marianna Griffin A.R.N.P. Flomax 0.4 mg: take 1 orally every 24 hours. Dispense fifteen (15). No refills. Substitution is permissible. -- Marianna Griffin A.R.N.P.
--- NOTE | 2016-12-15 16:41 | ED MED RECONCILIATION SUMMARY ---
Patient: FABY SOFIA Medication Reconciliation Report [facility] VisitID: [id number] [place] [address] 71y, M Registration Date/Time: 12/15/2016 Weight: 79.3 kg Height/Length: 71 in. BMI: 24.4 ALLERGIES: No Known Drug Allergy The patient's Home Medications are listed below: THE FOLLOWING MEDICATIONS NEED TO BE RECONCILED: AmLODIPine Besylate Oral ASA Oral Atorvastatin Calcium Oral Lisinopril-Hydrochlorothiazide Oral Metoprolol Tartrate Oral The source(s) of the original Home Medication information: patient The following Medications were given to the patient in the Emergency Department: IV NS IV Fluids bolus 0, then 1000 mL/hr, administered: 12/15/2016 1:06:00 PM Toradol [IVP] IVP 30 mg, administered: 12/15/2016 1:24:00 PM Lopressor [IVP] IVP 5 mg, administered: 12/15/2016 1:36:00 PM The following Medications were prescribed to the patient: Zofran 4 mg: Take 1 orally every six hours as needed for nausea/vomiting. Dispense ten (10). No refills. Substitution is permissible. -- Marianna Griffin A.R.N.P. Cipro 500 mg: take 1 tab orally every 12 hours for 10 days. Dispense twenty (20). No refills. Substitution is permissible. -- Marianna Griffin A.R.N.P. [place] 5 mg / 325 mg tablets: take 1 to 2 orally every 6 hours as needed for pain. Dispense fifteen (15). No refills. Substitution is permissible. -- Marianna Griffin A.R.N.P. Toradol 10 mg tablets: Take 1 tablet orally every 6 hours as needed. Dispense fifteen (15). No refills. Substitution is permissible. -- Marianna Griffin A.R.N.P. Flomax 0.4 mg: take 1 orally every 24 hours. Dispense fifteen (15). No refills. Substitution is permissible. -- Marianna Griffin A.R.N.P.
== END 2016-12-15 15:00 | disposition home or self-care (01) ==
LOC: ED SRH 12:43
DX: N13.6 Pyonephrosis (principal); N39.0 Urinary tract infection, site not specified; I10 Essential (primary) hypertension; F17.210 Nicotine dependence, cigarettes, uncomplicated; E78.00 Pure hypercholesterolemia, unspecified
CPT/HCPCS: 90004; 90100; 90469; 95059

== ENCOUNTER 2017-01-11 07:36 | Emergency (ER) | payer BC, OTHER ==
--- NOTE | 2017-01-11 08:48 | ED ORDER SUMMARY ---
..... Patient: FABY SOFIA OrderSheet [facility] VisitID: [id number] [place] [address] 71y, M Registration Date/Time: 01/11/2017 ORDER SHEET Weight: 79.3 kg (stated) Allergies: No Known Drug Allergy GENERAL ORDERS: MEDICATION ORDERS: Diazepam IM 5 mg (HIGH ALERT MEDICATION, NOW) (08:00 01/11/2017 Ajit Pate) (Ack 8:14 Eris R.N.) (8:26 Eris R.N.) IV FLUIDS: ORDER SHEET NOTES: [Electronically signed by Antoinette Lua R.N. (09:04 01/11/2017)] [Electronically signed by Antonino Trotter Dr. (09:54 01/11/2017)] [Electronically locked/signed by Antoinette Lua R.N. (09:04 01/11/2017)]
--- NOTE | 2017-01-11 08:48 | ED CLINICAL REPORT ---
Clinical Report - Physicians/Mid Levels [facility] [address] [place] [address] 01/11/2017 7:36 Patient: FABY SOFIA Time Seen: 0743; initial patient contact. Arrived- By private vehicle. Historian- patient. HISTORY OF PRESENT ILLNESS Chief Complaint: NECK PAIN. Modifying factors- worsened by rotation of the head to the right or left or neck flexion. Relieved by remaining still. It is described as being moderate in degree. The quality is noted to be aching. No radiation. Onset was yesterday and it is still present (persistent). It was gradual in onset. Patient denies an injury but injury to the head or chest. Similar symptoms previously: None. Recent medical care: Not recently seen/assessed. REVIEW OF SYSTEMS The patient has had a headache. No chest pain. All systems otherwise negative, except as recorded above. PAST HISTORY Ureterolithiasis. UTI - Urinary Tract Infection. Influenza. Myocardial Infarction. Hypercholesterolemia. Hypertension. ADDITIONAL SURGERIES: Cardiac Catheterization. Cholecystectomy. Stents. SOCIAL HISTORY Current every day smoker. No alcohol use or drug use. ADDITIONAL NOTES The nursing notes have been reviewed. PHYSICAL EXAM Vital Signs: 01/11/2017 07:43 BP: 195/105. HR: 101. RR: 18. O2 saturation: 100%. Temp: 97.7 F. Pain level now: 8/10. Have been reviewed. Hypertensive. Tachycardic. Respiratory rate normal. Temperature normal. Oxygen saturation normal. Appearance: Alert. Appears to be in pain. Neck: Moderate pain in the entire posterior neck upon turning the head to the right, turning the head to the left, flexing the neck and extending the neck. Moderate muscle spasm of the right and left posterior neck. Moderate acute decrease in ROM secondary to pain. No vertebral tenderness. Moderate soft tissue tenderness in the right upper, mid and lower neck area and left upper, mid and lower neck area. CVS: Normal heart rate and rhythm. Heart sounds normal. Respiratory: No respiratory distress. Breath sounds normal. Neuro: Oriented X 3. Mood/affect normal. No motor deficit. No sensory deficit. PROGRESS AND PROCEDURES Course of Care: Diazepam 5 mg IM given. Physical exam findings are improved. Symptoms much better. Disposition: Discharged home in good and improved condition. Condition: good. CLINICAL IMPRESSION Acute cervical strain. Episodic tension-type headache poorly controlled. INSTRUCTIONS No lifting greater than 10 lbs until released. Your Current Medications: CONTINUE TAKING THE FOLLOWING MEDICATIONS: AmLODIPine Besylate Oral. ASA Oral. Atorvastatin Calcium Oral. Lisinopril-Hydrochlorothiazide Oral. Metoprolol Tartrate Oral. Prescription Medications: Baclofen 20 mg: take 1 orally every 8 hours. Dispense thirty (30). No refills. Follow-up: Follow up with your doctor in about two days. Call for an appointment. Blood pressure screening was not performed during this visit because the patient has an active diagnosis of hypertension. (Electronically signed by Antonino Trotter Dr. 01/11/2017 9:54)
--- NOTE | 2017-01-11 08:48 | ED CLINICAL REPORT ---
Clinical Report - Physicians/Mid Levels [facility] [address] [place] [address] 01/11/2017 7:36 Patient: FABY SOFIA Time Seen: 0743; initial patient contact. Arrived- By private vehicle. Historian- patient. HISTORY OF PRESENT ILLNESS Chief Complaint: NECK PAIN. Modifying factors- worsened by rotation of the head to the right or left or neck flexion. Relieved by remaining still. It is described as being moderate in degree. The quality is noted to be aching. No radiation. Onset was yesterday and it is still present (persistent). It was gradual in onset. Patient denies an injury but injury to the head or chest. Similar symptoms previously: None. Recent medical care: Not recently seen/assessed. REVIEW OF SYSTEMS The patient has had a headache. No chest pain. All systems otherwise negative, except as recorded above. PAST HISTORY Ureterolithiasis. UTI - Urinary Tract Infection. Influenza. Myocardial Infarction. Hypercholesterolemia. Hypertension. ADDITIONAL SURGERIES: Cardiac Catheterization. Cholecystectomy. Stents. SOCIAL HISTORY Current every day smoker. No alcohol use or drug use. ADDITIONAL NOTES The nursing notes have been reviewed. PHYSICAL EXAM Vital Signs: 01/11/2017 07:43 BP: 195/105. HR: 101. RR: 18. O2 saturation: 100%. Temp: 97.7 F. Pain level now: 8/10. Have been reviewed. Hypertensive. Tachycardic. Respiratory rate normal. Temperature normal. Oxygen saturation normal. Appearance: Alert. Appears to be in pain. Neck: Moderate pain in the entire posterior neck upon turning the head to the right, turning the head to the left, flexing the neck and extending the neck. Moderate muscle spasm of the right and left posterior neck. Moderate acute decrease in ROM secondary to pain. No vertebral tenderness. Moderate soft tissue tenderness in the right upper, mid and lower neck area and left upper, mid and lower neck area. CVS: Normal heart rate and rhythm. Heart sounds normal. Respiratory: No respiratory distress. Breath sounds normal. Neuro: Oriented X 3. Mood/affect normal. No motor deficit. No sensory deficit. PROGRESS AND PROCEDURES Course of Care: Diazepam 5 mg IM given. Physical exam findings are improved. Symptoms much better. Disposition: Discharged home in good and improved condition. Condition: good. CLINICAL IMPRESSION Acute cervical strain. Episodic tension-type headache poorly controlled. INSTRUCTIONS No lifting greater than 10 lbs until released. Your Current Medications: CONTINUE TAKING THE FOLLOWING MEDICATIONS: AmLODIPine Besylate Oral. ASA Oral. Atorvastatin Calcium Oral. Lisinopril-Hydrochlorothiazide Oral. Metoprolol Tartrate Oral. Prescription Medications: Baclofen 20 mg: take 1 orally every 8 hours. Dispense thirty (30). No refills. Follow-up: Follow up with your doctor in about two days. Call for an appointment. Blood pressure screening was not performed during this visit because the patient has an active diagnosis of hypertension. (Electronically signed by Antonino Trotter Dr. 01/11/2017 9:54)
--- NOTE | 2017-01-11 08:48 | ED ORDER SUMMARY ---
..... Patient: FABY SOFIA OrderSheet [facility] VisitID: [id number] [place] [address] 71y, M Registration Date/Time: 01/11/2017 ORDER SHEET Weight: 79.3 kg (stated) Allergies: No Known Drug Allergy GENERAL ORDERS: MEDICATION ORDERS: Diazepam IM 5 mg (HIGH ALERT MEDICATION, NOW) (08:00 01/11/2017 Ajit Pate) (Ack 8:14 Eris R.N.) (8:26 Eris R.N.) IV FLUIDS: ORDER SHEET NOTES: [Electronically signed by Antoinette Lua R.N. (09:04 01/11/2017)] [Electronically signed by Antonino Trotter Dr. (09:54 01/11/2017)] [Electronically locked/signed by Antoinette Lua R.N. (09:04 01/11/2017)]
--- NOTE | 2017-01-11 08:48 | ED NURSING NOTES ---
Clinical Report - Nurses [facility] [address] [place] [address] 01/11/2017 7:36 Patient: FABY SOFIA TRIAGE Triage time 07:45. Acuity: LEVEL 3. Chief Complaint: (NECK PAIN). 07:44 01/11/17. 07:44 01/11/17. Alert. No acute distress. ( Neck pain that started yesterday. Denies injury.). MICHELLE COMA SCORE: [place] Coma Scale: 15- eyes open spontaneously (4); best verbal response- oriented x 4 (5); best motor response- obeys commands (6). --07:46 Shamar Thompson R.N. 07:43 01/11/17. BP: 195/105. HR: 101. RR: 18. O2 saturation: 100% on room air. Temp: 97.7 F (oral). Pain level now: 05/13. --07:46 Shamar Thompson R.N. SEPSIS SCREEN: Sepsis Screen. Negative (no infection suspected/documented). --07:49 Shamar Thompson R.N. Weight: 79.3 kg stated. Height/Length: 70 inches Per Patient. BMI: 25.1. --07:43 Shamar Thompson R.N. Medications AmLODIPine Besylate Oral. ASA Oral. Atorvastatin Calcium Oral. Lisinopril-Hydrochlorothiazide Oral. Metoprolol Tartrate Oral. --07:45 Shamar Thompson R.N. Medication/allergy information source: the patient and patient's family. --07:46 Shamar Thompson R.N. Allergies No Known Drug Allergy. --07:45 Shamar Thompson R.N. History Arrived by private vehicle, and accompanied by family. Primary physician (DEJA). 07:44 01/11/17. This started yesterday. 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 PAST MEDICAL HX: Immunizations not up to date. SOCIAL HX: Current every day heavy tobacco smoker (cigarette)- less than 1 pack per day. No alcohol use or drug use. No infectious disease exposure. ABUSE ASSESSMENT: No report of abuse. FALL RISK ASSESSMENT: Fall risk assessment completed. No fall risk identified. NUTRITIONAL RISK ASSESSMENT: The nutritional risk assessment revealed no deficiencies. FUNCTIONAL ASSESSMENT: Functional assessment: no impairments noted. LEARNING NEEDS ASSESSMENT: The learning needs assessment revealed no barriers. SKIN INTEGRITY ASSESSMENT: Skin integrity risk assessment completed. No skin integrity risk identified. --07:46 Shamar Thompson R.N. PROBLEMS: Ureterolithiasis. UTI - Urinary Tract Infection. Influenza. Myocardial Infarction. Hypercholesterolemia. Hypertension. --07:46 Shamar Thompson R.N. ADDITIONAL SURGERIES: Cardiac Catheterization. Cholecystectomy. Stents. --07:46 Shamar Thompson R.N. Assessment 07:44 01/11/17. --07:46 Shamar Thompson R.N. Interventions 07:44 01/11/17. 07:44 01/11/17. ID and allergy band on patient. To treatment room. --07:46 Shamar Thompson R.N. PHYSICAL ASSESSMENT 07:47 01/11/17. Ambulatory to room. GENERAL / NEURO / PSYCH: Alert. Oriented X 4. Appears in pain. HEENT: ( cervical neck pain with palpation). RESPIRATORY: Respirations not labored. CVS: Capillary refill less than 2 seconds. SKIN: Skin is warm and dry. --07:47 Shamar Thompson R.N. NURSING PROGRESS NOTES 07:47 01/11/17. The plan of care for this patient has been created. Head of bed elevated. Reassurance given. Two patient identifiers checked. Call light placed in reach. Side rails up x 2. Bed placed in lowest position. Brakes of bed on. --07:47 Shamar Thompson R.N. 07:47 01/11/17. Patient ready for evaluation- chart flagged and notification provided. --07:47 Shamar Thompson R.N. 08:26 01/11/2017 Diazepam (Diazepam) IM 5 mg given. Given in the right deltoid. Allergies verified, confirmed 5 rights and sedative warning given to the patient. --08:26 Shamar Thompson R.N. 08:27 01/11/17. --08:27 Shamar Thompson R.N. 08:26 01/11/17. BP: 185/99. HR: 80. RR: 18. O2 saturation: 99% on room air. Additional comments: Pain is 0/10 while lying, 7/10 with movement. --08:27 Shamar Thompson R.N. 08:27 01/11/17. Patient and family informed about reason for wait and about plan of care. --08:27 Shamar Thompson R.N. 08:41 01/11/17. Reassessment after medication administered. He has had no adverse reaction. Overall patient status is improved- he states feels better. ( 4/10 pain after IM injection, feels better). RESPIRATORY: No respiratory distress. Breath sounds normal. SKIN: Skin is warm and dry. Skin color within normal limits. --08:41 Shamar Thompson R.N. DISPOSITION / DISCHARGE Departure time: 09:03. Condition at departure: improved. No learning barriers present. Discharge instructions provided and reviewed with the patient. The patient was discharged home and accompanied by spouse. He left the Emergency Department ambulatory and via private vehicle. Spouse driving. --09:03 Antoinette Lua R.N. 09:02 01/11/17. BP: 144/81. HR: 71. RR: 18. O2 saturation: 96%. Pain level now 12/11. --09:03 Antoinette Lua R.N. Locked/Released at 01/11/2017 9:04 by Antoinette Lua R.N.
--- NOTE | 2017-01-11 09:55 | ED MAR SUMMARY ---
..... Medication Administration Record [facility] [address] [place] [address] Patient: FABY SOFIA Visit ID: [id number] 71y, M Weight: 79.3 kg Height/Length: 70 in BMI: 25.1 ALLERGIES: No Known Drug Allergy Given 08:26 01/11/2017 Shamar Thompson R.N. Medication Administered: DIAZEPAM [IM] (DIAZEPAM), Dose: 5 mg IM. Medication Ordered: Diazepam IM 5 mg (HIGH ALERT MEDICATION, NOW).
--- NOTE | 2017-01-11 09:55 | ED MED RECONCILIATION SUMMARY ---
Patient: FABY SOFIA Medication Reconciliation Report [facility] VisitID: [id number] [address] [place] [address] 71y, M Registration Date/Time: 01/11/2017 Weight: 79.3 kg Height/Length: 70 in. BMI: 25.1 ALLERGIES: No Known Drug Allergy The patient's Home Medications are listed below: CONTINUE TAKING THE FOLLOWING MEDICATIONS: AmLODIPine Besylate Oral ASA Oral Atorvastatin Calcium Oral Lisinopril-Hydrochlorothiazide Oral Metoprolol Tartrate Oral The source(s) of the original Home Medication information: patient patient's family member The following Medications were given to the patient in the Emergency Department: Diazepam [IM] IM 5 mg, administered: 01/11/2017 8:26:00 AM The following Medications were prescribed to the patient: Baclofen 20 mg: take 1 orally every 8 hours. Dispense thirty (30). No refills. -- Antonino Trotter Dr.
--- NOTE | 2017-01-11 09:55 | ED DISCHARGE INSTRUCTIONS ---
Patient: FABY SOFIA General Instructions [facility] VisitID: [id number] [place] [address] 71y, M Registration Date/Time: 01/11/2017 Acute cervical strain. Episodic tension-type headache poorly controlled. INSTRUCTIONS No lifting greater than 10 lbs until released. Your Current Medications: CONTINUE TAKING THE FOLLOWING MEDICATIONS: AmLODIPine Besylate Oral. ASA Oral. Atorvastatin Calcium Oral. Lisinopril-Hydrochlorothiazide Oral. Metoprolol Tartrate Oral. Prescription Medications: Baclofen 20 mg: take 1 orally every 8 hours. Dispense thirty (30). No refills. Follow-up: Follow up with your doctor in about two days. Call for an appointment. Blood pressure screening was not performed during this visit because the patient has an active diagnosis of hypertension. ADDITIONAL INFORMATION Neck Sprain Or Strain A sudden force that causes turning or bending of the neck (such as in a car accident) can stretch or tear muscles (strain) and ligaments (sprain) and cause neck pain. Sometimes neck pain occurs after a simple awkward movement. In either case, muscle spasm is commonly present and contributes to the pain. Unless you had a forceful physical injury (for example, a car accident or fall), X-rays are usually not ordered for the initial evaluation of neck pain. If pain continues and dose not respond to medical treatment, X-rays and other tests may be performed at a later time. Home care The following guidelines will help you care for your injury at home: You may feel more soreness and spasm the first few days after the injury. Reduce your activity level until symptoms begin to improve. When lying down, use a comfortable pillow that supports the head and keeps the spine in a neutral position. The position of the head should not be tilted forward or backward. Use ice packs (ice in a plastic bag, wrapped in a towel) to treat acute pain. Apply for 20 minutes every 24 hours during the first two days. Then, begin local heat (hot shower, hot bath or heating pad) andmassageto reduce muscle spasm. Some patients feel best alternating hot and cold treatments, or just staying with one method only. Do what feels the best to you and gives the most relief. You may use acetaminophen or ibuprofen to control pain, unless another pain medicine was prescribed.If you have chronic liver or kidney disease or ever had a stomach ulcer or GI bleeding, talk with your doctor before using these medicines. Follow-up care Follow up with your physician or this facility if your symptoms do not show signs of improvement. Physical therapy may be needed. If you had X-rays today, they didnt show any broken bones, breaks, or fractures. Sometimes fractures dont show up on the first X-ray. Bruises and sprains can sometimes hurt as much as a fracture. These injuries can take time to heal completely. If your symptoms dont improve or they get worse, talk with your doctor. You may need a repeat X-ray. When to seek medical care Get prompt medical attention if any of the following occur: Pain becomes worse or spreads into your arms Weakness or numbness in one or both arms Tension Headache Muscle Tension Headache (also called "stress headache") is a very common cause of head pain. Under stress, some people tense the muscles of their shoulder, neck and scalp without knowing it. If this lasts long enough, a headache can occur. These headaches can be very painful and last for hours or even days. Home Care: If you were given pain medicine for this headache, do not drive yourself home. Arrange for a ride, instead. When you get home, try to sleep. You should feel much better when you wake up. Heat to the back of your neck may relieve neck spasm. Drink only clear liquids or eat a very light diet to avoid nausea/vomiting until symptoms improve. Preventing Future Headaches Identify the sources of stress in your life. These may not be obvious! Learn new ways to handle your stress, such as regular exercise, biofeedback, self-hypnosis and meditation. For more information about this, consult your doctor or go to a local bookstore and review the many books and tapes on this subject. At the first sign of a tension headache, take time out if possible. Remove yourself from the stressful situation, find a quiet comfortable place to sit or lie down and let yourself relax. Heat and deep massage of the tight areas in the neck and shoulders may help reduce muscle spasm. Medicine, such as ibuprofen (Advil or Motrin) or a prescribed muscle relaxant may be helpful at this point. Follow Up with your doctor if the headache is not better within the next 24 hours. If you have frequent headaches you should discuss a treatment plan with your primary care doctor. Ask if you can have medicine to take at home the next time you get a bad headache. This may avoid the need for a visit to the emergency department in the future. Poorly controlled chronic headaches may require a referral to a neurologist (headache specialist). Get Prompt Medical Attention if any of the following occur: Worsening of your head pain or no improvement within 24 hours Repeated vomiting (unable to keep liquids down) Fever of 100.4F (38C) or higher, or as directed by your healthcare provider Stiff neck Extreme drowsiness, confusion or fainting Dizziness, vertigo (dizziness with spinning sensation) Weakness of an arm or leg or one side of the face Difficulty with speech or vision You have been given the following additional information: Neck Sprain/Strain Headache, Tension No lifting greater than 10 lbs until released. (Electronically signed by Antonino Trotter Dr. 01/11/2017 9:54)
--- NOTE | 2017-01-11 09:55 | ED MED RECONCILIATION SUMMARY ---
Patient: FABY SOFIA Medication Reconciliation Report [facility] VisitID: [id number] [address] [place] [address] 71y, M Registration Date/Time: 01/11/2017 Weight: 79.3 kg Height/Length: 70 in. BMI: 25.1 ALLERGIES: No Known Drug Allergy The patient's Home Medications are listed below: CONTINUE TAKING THE FOLLOWING MEDICATIONS: AmLODIPine Besylate Oral ASA Oral Atorvastatin Calcium Oral Lisinopril-Hydrochlorothiazide Oral Metoprolol Tartrate Oral The source(s) of the original Home Medication information: patient patient's family member The following Medications were given to the patient in the Emergency Department: Diazepam [IM] IM 5 mg, administered: 01/11/2017 8:26:00 AM The following Medications were prescribed to the patient: Baclofen 20 mg: take 1 orally every 8 hours. Dispense thirty (30). No refills. -- Antonino Trotter Dr.
--- NOTE | 2017-01-11 09:55 | ED MAR SUMMARY ---
..... Medication Administration Record [facility] [address] [place] [address] Patient: FABY SOFIA Visit ID: [id number] 71y, M Weight: 79.3 kg Height/Length: 70 in BMI: 25.1 ALLERGIES: No Known Drug Allergy Given 08:26 01/11/2017 Shamar Thompson R.N. Medication Administered: DIAZEPAM [IM] (DIAZEPAM), Dose: 5 mg IM. Medication Ordered: Diazepam IM 5 mg (HIGH ALERT MEDICATION, NOW).
== END 2017-01-11 09:05 | disposition home or self-care (01) ==
LOC: ED SRH 07:36
DX: S16.1XXA Strain of muscle, fascia and tendon at neck level, initial encounter (principal); X58.XXXA Exposure to other specified factors, initial encounter; Y93.89 Activity, other specified; Y92.9 Unspecified place or not applicable; Y99.9 Unspecified external cause status; G44.209 Tension-type headache, unspecified, not intractable; I10 Essential (primary) hypertension; F17.210 Nicotine dependence, cigarettes, uncomplicated

== ENCOUNTER 2017-01-11 23:24 | Emergency (ER) | payer BC ==
--- NOTE | 2017-01-12 01:34 | ED CLINICAL REPORT ---
Clinical Report - Physicians/Mid [facility] [address] [place] [address] 01/11/2017 23:24 Patient: FABY SOFIA Time Seen: 23:57 Apr 2016. Arrived- By private vehicle. Historian- patient. CPT: ER phys charges level 4 (#[id number]). HISTORY OF PRESENT ILLNESS Chief Complaint: HEADACHE, WEAKNESS and CONFUSION. ( Pt had some confusion today after taking bethanacol and resting.). This started yesterday and is still present. At its maximum, severity described as moderate. When seen in the E.D., severity described as moderate. Modifying factors- worsened by movement. Not relieved by anything. The patient has had weakness. (Was operating a riding lawnmower 2 days ago that bounced him a round a lot right before the neck started hurting.). Similar symptoms previously: Twice, milder. Diagnosis: (stiff neck). Recent medical care: The patient was seen recently at this facility (yesterday). REVIEW OF SYSTEMS No fever, sore throat, sinus drainage, nasal congestion or cough. No difficulty breathing, chest pain, abdominal pain, nausea or vomiting. No diarrhea, chills, difficulty with urination, blackouts or double vision. The patient has had a moderate, sharp occipital headache (radiating to right parietal area.). The headache was gradual in onset. No difficulty with ambulation. All systems otherwise negative, except as recorded above. PAST HISTORY Tension-Type Headache. Cervical Strain. Ureterolithiasis. UTI - Urinary Tract Infection. Influenza. Myocardial Infarction. Hypercholesterolemia. Hypertension. --23:37 Dianne Acosta. ADDITIONAL SURGERIES: Cardiac Catheterization. Cholecystectomy. Stents. Medications: AmLODIPine Besylate Oral. ASA Oral. Atorvastatin Calcium Oral. Lisinopril-Hydrochlorothiazide Oral. Metoprolol Tartrate Oral. Allergies: No Known Drug Allergy. SOCIAL HISTORY Light tobacco smoker (cigarette)- less than 1/2 a pack per day. No alcohol use or drug use. ADDITIONAL NOTES The nursing notes have been reviewed. PHYSICAL EXAM Vital Signs: 01/11/2017 23:32 BP: 214/106. HR: 92. RR: 18. O2 saturation: 96%. Temp: 98.2 F. Pain level now: 04/12. Appearance: Alert. Patient in mild distress. Eyes: Pupils equal, round and reactive to light. Eyes normal inspection. ENT: Ears normal. Nose normal. Pharynx normal. Neck: No meningeal signs. (Point tender over the right , mid and lower neck to palpation. Pain with ROM.). CVS: Normal heart rate and rhythm. Heart sounds normal. Pulses normal. Respiratory: No respiratory distress. Breath sounds normal. Chest nontender. Abdomen: Nontender. Back: Normal inspection. Skin: Skin warm. Normal skin color. No rash. Extremities: Extremities exhibit normal ROM. No lower extremity edema. Neuro: Oriented X 3. No motor deficit. No sensory deficit. Reflexes normal. LABS, X-RAYS, AND EKG CT Head: No acute disease. Laboratory Tests: ESR: (LUIS E: 01/12/2017 00:17) [facility] 01/12[facility] 00[facility]54[facility] Final results Test Result Flag Units (Reference) SED RATE WESTERGREN 5 mm/hr (0-20) CBC w Diff: (LUIS E: 01/12/2017 00:17) ( [facility] 01/12/2017 00:31) Final results Test Result Flag Units (Reference) WHITE BLOOD COUNT 8.4 K/uL (4.5-11.5) RED BLOOD COUNT 5.76 M/uL (4.50-5.90) HEMOGLOBIN 16.3 gm/dL (13.5-17.5) HEMATOCRIT 49.6 % (41.0-53.0) MEAN CELL VOLUME 86 fL (80-100) MEAN CORPUSCULAR HGB 28 pg (26-34) MEAN CORPUSCULAR HGB CONC 33 g/dL (31-37) RED CELL DISTRIBUTION WIDTH 14.2 % (11.6-14.8) PLATELET COUNT 140 L K/uL (150-400) NEUTROPHIL % 78.2 H % (50-75) LYMPH % 8.4 L % (25-40) MONO % 11.8 % (3-14) EOSINOPHIL % 1.4 % (0-4) BASOPHIL % 0.2 % (0-2) [id number]: (LUIS E: 01/12/2017 00:17) ( MsgRcvd 01/12/2017 00:49) Final results Test Result Flag Units (Reference) C-REACTIVE PROTEIN 6.1 H mg/dL (0.0-0.9) [id number]: (LUIS E: 01/12/2017 00:17) ( MsgRcvd 01/12/2017 01:11) Final results Test Result Flag Units (Reference) PROCALCITONIN <0.5 ng/mL (0-0.5) PCT Concentration: Interpretation : Risk/option for action PCT <=0.5 ng/mL : Systemic : Low risk forinfection(sepsis): progression to severeis not likely. : systemic infection.Local bacterial : CAUTION-PCT levelsinfection is : below 0.5 ng/mL do notpossible. : exclude an infection,because localizedinfections (withoutsystemic signs) may beassociated with suchlow levels. If PCT ismeasured very earlyafter a bacterialchallenge (usually <6hours), these valuesmay still be low. Inthis case PCT shouldbe re-assessed 6-24hours later. PCT >0.5 and : Systemic infection: Moderate risk for<= 2 ng/mL : (sepsis) is : progression to severepossible, but : systemic infection.other conditions : The patient should beare known to : closely monitoredelevate PCT. : both clinically andby re-assessing PCTwithin 6-24 hours. PCT > 2 ng/mL : Systemic infection: High risk for(sepsis) is likely: progression to severeunless other : systemic infection.causes are known. : PCT >= 10 ng/mL : Important systemic: High likelihood ofinflammatory : severe sepsis orresponse, almost : septic shock.exclusively due to:severe bacterial :sepsis or septic :shock. : CHEM 13 PANEL: (LUIS E: 01/12/2017 00:17) ( MsgRcvd 01/12/2017 00:49) Final results Test Result Flag Units (Reference) GLUCOSE 116 H mg/dL (70-110) BUN 15 mg/dL (7-18) CREATININE 1.1 mg/dL (0.6-1.3) Estimated GFR >60 mL/min Estimated GFR- >60 mL/min Note: Persistent reduction over 3 months in eGFR<60 mL/min/1.73 m2 defines CKD. Patients with eGFR values>=60 mL/min/1.73 m2 may also have CKD if evidence ofpersistent proteinuria. Additional information may be foundat www.kidney.org. SODIUM 141 mmol/L (136-145) POTASSIUM 3.8 mmol/L (3.5-5.1) CHLORIDE 105 mmol/L (98-107) CARBON DIOXIDE 28 mmol/L (21-32) CALCIUM 9.2 mg/dL (8.5-10.1) TOTAL PROTEIN 7.0 g/dL (6.4-8.2) ALBUMIN 3.4 g/dL (3.3-5.0) BILIRUBIN, TOTAL 0.6 mg/dL (0.0-1.0) ALKALINE PHOSPHATASE 91 U/L (46-116) AST (SGOT) 13 L U/L (15-37) ALT (SGPT) 19 U/L (12-78) CPK 119 U/L (24-260) MAGNESIUM 1.8 mg/dL (1.8-2.4) TROPONIN I <0.05 ng/mL (0.00-1.5) TROPONIN REFERENCE RANGE:<0.1 NEGATIVE0.1-1.5 INDETERMINANT>1.5 POSITIVE . 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 PROGRESS AND PROCEDURES Course of Care: Heplock Toradol 30 mg IV Ativan 0.5 mg Iv Patient is stable. Symptoms much better. Pt likely had confusion related to the prior medications. Patient/family counseled. Old medical records ordered. Disposition: Discharged. Condition: stable and improved. CLINICAL IMPRESSION Severe DJD of the neck. INSTRUCTIONS Wear soft neck collar until better. (Stop the baclofen). Warnings: Further evaluation is necessary. SEDATIVE MEDICATION: You were given sedative medication during your visit. Do not drive or operate dangerous machinery. GENERAL WARNINGS: Return or contact your physician immediately if your condition worsens or changes unexpectedly, if not improving as expected, or if other problems arise. Prescription Medications: Naprosyn 500 mg tablets: take 1 orally every 12 hours as needed for pain. Dispense twenty (20). No refills. Substitution is permissible. Ativan 0.5 mg: take 1-2 orally every 6 hours as needed. Dispense twenty (20). No refill. (for pain) Follow-up: Follow up with your doctor Wednesday in four days. Call for the next available appointment. Understanding of the discharge instructions verbalized by patient and family. Discharge instructions reviewed with and understanding was verbalized by spouse. (Electronically signed by Theo Joiner MD 01/14/2017 17:50)
--- NOTE | 2017-01-12 01:34 | ED ORDER SUMMARY ---
..... Patient: FABY SOFIA OrderSheet [facility] VisitID: [id number] [place] [address] 71y, M Registration Date/Time: 01/11/2017 ORDER SHEET Weight: 77.1 kg Allergies: No Known Drug Allergy GENERAL ORDERS: Cardiac Panel Stat (00:01/12/2017 Cheyanne ESTEVES) (Ack 0:10 LMuller) (0:20 LMuller) ESR Urgent (:01/12/2017 Cheyanne ESTEVES) (Ack 0:10 LMuller) (0:20 LMuller) CRP Urgent (:01/12/2017 Cheyanne ESTEVES) (Ack 0:10 LMuller) (0:20 LMuller) PCT (Procalcitonin) Urgent (00:01/12/2017 Cheyanne ESTEVES) (Ack 0:10 LMuller) (0:20 LMuller) Blood Culture (No) (N/A) Urgent (:01/12/2017 Cheyanne ESTEVES) (Ack 0:12 LMuller) (0:20 LMuller) CT Head wo Cont Urgent (00:01/12/2017 Cheyanne ESTEVES) (Ack 0:12 LMuller) (0:49 GUnger) CT Cervical Spine wo Cont Urgent (00:01/12/2017 Cheyanne ESTEVES) (Ack 0:12 LMuller) (0:49 GUnger) Soft Collar (01:30 01/12/2017 Cheyanne ESTEVES) (1:33 LMuller) (1:36 TBowen R.N.) MEDICATION ORDERS: IV FLUIDS: Toradol IV 30 mg (NOW) (00:01/12/2017 Cheyanne ESTEVES) (0:22 TBowen R.N.) Ativan IV 0.5 mg (NOW) (:01/12/2017 Cheyanne ESTEVES) (0:22 TBowen R.N.) IV Saline Lock (:01/12/2017 Cheyanne ESTEVES) (0:22 TBowen R.N.) ORDER SHEET NOTES: [Electronically signed by Charo Alvarado R.N. (01:46 01/12/2017)] [Electronically signed by Theo Joiner MD (17:50 01/14/2017)] [Electronically locked/signed by Charo Alvarado R.N. (01:46 01/12/2017)]
--- NOTE | 2017-01-12 01:34 | ED NURSING NOTES ---
Clinical Report - Nurses Located Within [facility] [address] [place] [address] 01/11/2017 23:24 Patient: FABY SOFIA TRIAGE Triage time 23:32. Acuity: LEVEL 3. Chief Complaint: HEADACHE, WEAKNESS and CONFUSION. --23:34 TonyaB, R.N. 23:32 01/11/17. BP: 214/106. HR: 92. RR: 18. O2 saturation: 96%. Temp: 98.2 F. Pain level now: 04/12. --23:34 TonyaB, R.N. Weight: 77.1 kg. Height/Length: 70 inches. BMI: 24.4. --23:33 TonyaB, R.N. Medications AmLODIPine Besylate Oral. ASA Oral. Atorvastatin Calcium Oral. Lisinopril-Hydrochlorothiazide Oral. Metoprolol Tartrate Oral. --23:37 TonyaB, R.N. Allergies No Known Drug Allergy. --23:37 TonyaB, R.N. History Arrived by private vehicle. Historian: patient and family. This started just prior to arrival. 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 SOCIAL HX: Light tobacco smoker. No alcohol use or drug use. No infectious disease exposure. SELF HARM ASSESSMENT: A self harm assessment was performed. The patient answered "no" to the question "Have you recently felt down, depressed, or hopeless?", "Have you noticed less interest or pleasure in doing things?", "Do you have thoughts of harming or killing yourself?", "Are you here because you tried to hurt yourself?", "Have you ever tried to hurt yourself before today?", "Have you recently had thoughts about harming or killing others?" and "Do you have any dangerous items in your possession?". FALL RISK ASSESSMENT: Fall risk assessment completed. No fall risk identified. NUTRITIONAL RISK ASSESSMENT: The nutritional risk assessment revealed no deficiencies. FUNCTIONAL ASSESSMENT: Functional assessment: no impairments noted. LEARNING NEEDS ASSESSMENT: The learning needs assessment revealed no barriers. SKIN INTEGRITY ASSESSMENT: Skin integrity risk assessment completed. No skin integrity risk identified. --23:34 Niurka Acosta ( pt complains of neck pain and headache). --23:34 Dianne Acosta. PROBLEMS: Tension-Type Headache. Cervical Strain. Ureterolithiasis. UTI - Urinary Tract Infection. Influenza. Myocardial Infarction. Hypercholesterolemia. Hypertension. --23:37 Dianne Acosta. ADDITIONAL SURGERIES: Cardiac Catheterization. Cholecystectomy. Stents. --23:37 Dianne Acosta. Interventions ID band on patient. To treatment room. --23:34 Dianne Acosta. PHYSICAL ASSESSMENT To room via wheelchair. GENERAL / NEURO / PSYCH: Alert. Oriented X 4. Appears in pain. HEENT: Pupils equal, round and reactive to light. No facial asymmetry noted. Mucous membranes are pink. RESPIRATORY: Respirations not labored. Chest nontender. Breath sounds within normal limits. CVS: Normal sinus rhythm noted. Capillary refill less than 2 seconds. Pulses within normal limits. GI / : Abdomen soft and nontender and normal bowel sounds. SKIN: Skin intact. Skin is warm and dry. Normal skin turgor. --23:35 Dianne Acosta. NURSING PROGRESS NOTES Patient identifiers checked. Call light placed in reach. Side rails up. Bed placed in lowest position. Brakes of bed on. --23:36 Dianne Acosta. Patient gowned. --23:36 Dianne Acosta. 00:17 01/12/2017 Site #1 started via IV in the right antecubital space with an 20g angiocath, with aseptic technique and good blood return; one attempt. Blood drawn: rainbow set and cultures x1. Labeled in the presence of the patient and sent to the lab. Saline lock flushed with 10 mL saline. --00:21 Ximena Sullivan R.N. 00:01/12/2017 Site #2 started via IV in the right antecubital space with an 20g angiocath, with aseptic technique and good blood return; one attempt. Blood drawn: rainbow set. Labeled in the presence of the patient and sent to the lab. Saline lock flushed with saline. --00:22 Dianne Acosta. 00:22 01/12/2017 Toradol IVP 30 mg given. via site #1. Allergies verified and confirmed 5 rights. IV patency established. IV site checked: no pain, redness, or swelling. IV flushed thoroughly pre- and post-medication administration. IVP given by RN. --00:22 Niurka Acosta 00:22 01/12/2017 Ativan (LORazepam) IVP 0.5 mg given. via site #1. Allergies verified, confirmed 5 rights and sedative warning given to the patient and patient's family. IV patency established. IV site checked: no pain, redness, or swelling. IV flushed thoroughly pre- and post-medication administration. IVP given by RN. --00:22 Niurka Acosta ( pt resting in bed). --01:23 Niurka Acosta 01:43 01/12/2017 IV Saline Lock Drip IV Discontinued: upon discharge. Total amount infused: 0 mL. --01:43 Niurka Acosta NIH STROKE SCALE: Score 0. Level of Consciousness: alert (0). LOC Questions: both (0). LOC Commands: both (0). Best gaze: normal (0). Visual field loss: none (0). Facial palsy: normal (0). Motor arm: no drift right arm (0) and no drift left arm (0). Motor leg: no drift right leg (0) and no drift left leg (0). Limb ataxia: none (0). Sensory loss: none (0). Aphasia: none (0). Dysarthria: normal (0). Extinction and inattention: none (0). --23:36 Niurka Acosta DISPOSITION / DISCHARGE Departure time: 01:45. Condition at departure: improved. No learning barriers present. Discharge instructions provided and reviewed with the patient. Reviewed medication(s) side effects, precautions, dosing and course information. Prescription(s) given to the patient. Follow up contact number with PCP. Patient verbalized understanding. Written instructions provided in Wallisian. No warning instructions, treatment instructions, referrals given to the patient, diet instructions or activity restrictions. No note given or stop smoking instructions. The patient was discharged by the physician. He was discharged home and accompanied by spouse. He left the Emergency Department ambulatory and via private vehicle. Spouse driving. FALL RISK ASSESSMENT: Fall risk assessment completed. No fall risk identified. --01:45 Niurka Acosta 01:43 01/12/17. BP: 173/81. HR: 75. RR: 16. O2 saturation: 96%. Temp: deferred. Pain level now: 11/13. --01:45 Niurka Acosta Locked/Released at 01/12/2017 1:46 by Niurka Acosta
--- NOTE | 2017-01-12 01:34 | ED ORDER SUMMARY ---
..... Patient: FABY SOFIA OrderSheet [facility] VisitID: [id number] [place] [address] 71y, M Registration Date/Time: 01/11/2017 ORDER SHEET Weight: 77.1 kg Allergies: No Known Drug Allergy GENERAL ORDERS: Cardiac Panel Stat (00:01/12/2017 Cheyanne ESTEVES) (Ack 0:10 LMuller) (0:20 LMuller) ESR Urgent (:01/12/2017 Cheyanne ESTEVES) (Ack 0:10 LMuller) (0:20 LMuller) CRP Urgent (:01/12/2017 Cheyanne ESTEVES) (Ack 0:10 LMuller) (0:20 LMuller) PCT (Procalcitonin) Urgent (00:01/12/2017 Cheyanne ESTEVES) (Ack 0:10 LMuller) (0:20 LMuller) Blood Culture (No) (N/A) Urgent (:01/12/2017 Cheyanne ESTEVES) (Ack 0:12 LMuller) (0:20 LMuller) CT Head wo Cont Urgent (00:01/12/2017 Cheyanne ESTEVES) (Ack 0:12 LMuller) (0:49 GUnger) CT Cervical Spine wo Cont Urgent (00:01/12/2017 Cheyanne ESTEVES) (Ack 0:12 LMuller) (0:49 GUnger) Soft Collar (01:30 01/12/2017 Cheyanne ESTEVES) (1:33 LMuller) (1:36 TBowen R.N.) MEDICATION ORDERS: IV FLUIDS: Toradol IV 30 mg (NOW) (00:01/12/2017 Cheyanne ESTEVES) (0:22 TBowen R.N.) Ativan IV 0.5 mg (NOW) (:01/12/2017 Cheyanne ESTEVES) (0:22 TBowen R.N.) IV Saline Lock (:01/12/2017 Cheyanne ESTEVES) (0:22 TBowen R.N.) ORDER SHEET NOTES: [Electronically signed by Charo Alvarado R.N. (01:46 01/12/2017)] [Electronically signed by Theo Joiner MD (17:50 01/14/2017)] [Electronically locked/signed by Charo Alvarado R.N. (01:46 01/12/2017)]
--- NOTE | 2017-01-12 01:34 | ED CLINICAL REPORT ---
Clinical Report - Physicians/Mid Levels [facility] [address] [place] [address] 01/11/2017 23:24 Patient: FABY SOFIA Time Seen: 23:57 Apr 2016. Arrived- By private vehicle. Historian- patient. CPT: ER phys charges level 4 (#[id number]). HISTORY OF PRESENT ILLNESS Chief Complaint: HEADACHE, WEAKNESS and CONFUSION. ( Pt had some confusion today after taking bethanacol and resting.). This started yesterday and is still present. At its maximum, severity described as moderate. When seen in the E.D., severity described as moderate. Modifying factors- worsened by movement. Not relieved by anything. The patient has had weakness. (Was operating a riding lawnmower 2 days ago that bounced him a round a lot right before the neck started hurting.). Similar symptoms previously: Twice, milder. Diagnosis: (stiff neck). Recent medical care: The patient was seen recently at this facility (yesterday). REVIEW OF SYSTEMS No fever, sore throat, sinus drainage, nasal congestion or cough. No difficulty breathing, chest pain, abdominal pain, nausea or vomiting. No diarrhea, chills, difficulty with urination, blackouts or double vision. The patient has had a moderate, sharp occipital headache (radiating to right parietal area.). The headache was gradual in onset. No difficulty with ambulation. All systems otherwise negative, except as recorded above. PAST HISTORY Tension-Type Headache. Cervical Strain. Ureterolithiasis. UTI - Urinary Tract Infection. Influenza. Myocardial Infarction. Hypercholesterolemia. Hypertension. --23:37 Dianne Acosta. ADDITIONAL SURGERIES: Cardiac Catheterization. Cholecystectomy. Stents. Medications: AmLODIPine Besylate Oral. ASA Oral. Atorvastatin Calcium Oral. Lisinopril-Hydrochlorothiazide Oral. Metoprolol Tartrate Oral. Allergies: No Known Drug Allergy. SOCIAL HISTORY Light tobacco smoker (cigarette)- less than 1/2 a pack per day. No alcohol use or drug use. ADDITIONAL NOTES The nursing notes have been reviewed. PHYSICAL EXAM Vital Signs: 01/11/2017 23:32 BP: 214/106. HR: 92. RR: 18. O2 saturation: 96%. Temp: 98.2 F. Pain level now: 04/12. Appearance: Alert. Patient in mild distress. Eyes: Pupils equal, round and reactive to light. Eyes normal inspection. ENT: Ears normal. Nose normal. Pharynx normal. Neck: No meningeal signs. (Point tender over the right , mid and lower neck to palpation. Pain with ROM.). CVS: Normal heart rate and rhythm. Heart sounds normal. Pulses normal. Respiratory: No respiratory distress. Breath sounds normal. Chest nontender. Abdomen: Nontender. Back: Normal inspection. Skin: Skin warm. Normal skin color. No rash. Extremities: Extremities exhibit normal ROM. No lower extremity edema. Neuro: Oriented X 3. No motor deficit. No sensory deficit. Reflexes normal. LABS, X-RAYS, AND EKG CT Head: No acute disease. Laboratory Tests: ESR: (LUIS E: 01/12/2017 00:17) ( [facility]54[facility] Final results Test Result Flag Units (Reference) SED RATE WESTERGREN 5 mm/hr (0-20) CBC w Diff: (LUIS E: 01/12/2017 00:17) ( [facility] 01/12/2017 00:31) Final results Test Result Flag Units (Reference) WHITE BLOOD COUNT 8.4 K/uL (4.5-11.5) RED BLOOD COUNT 5.76 M/uL (4.50-5.90) HEMOGLOBIN 16.3 gm/dL (13.5-17.5) HEMATOCRIT 49.6 % (41.0-53.0) MEAN CELL VOLUME 86 fL (80-100) MEAN CORPUSCULAR HGB 28 pg (26-34) MEAN CORPUSCULAR HGB CONC 33 g/dL (31-37) RED CELL DISTRIBUTION WIDTH 14.2 % (11.6-14.8) PLATELET COUNT 140 L K/uL (150-400) NEUTROPHIL % 78.2 H % (50-75) LYMPH % 8.4 L % (25-40) MONO % 11.8 % (3-14) EOSINOPHIL % 1.4 % (0-4) BASOPHIL % 0.2 % (0-2) [id number]: (LUIS E: 01/12/2017 00:17) ( MsgRcvd 01/12/2017 00:49) Final results Test Result Flag Units (Reference) C-REACTIVE PROTEIN 6.1 H mg/dL (0.0-0.9) [id number]: (LUIS E: 01/12/2017 00:17) ( MsgRcvd 01/12/2017 01:11) Final results Test Result Flag Units (Reference) PROCALCITONIN <0.5 ng/mL (0-0.5) PCT Concentration: Interpretation : Risk/option for action PCT <=0.5 ng/mL : Systemic : Low risk forinfection(sepsis): progression to severeis not likely. : systemic infection.Local bacterial : CAUTION-PCT levelsinfection is : below 0.5 ng/mL do notpossible. : exclude an infection,because localizedinfections (withoutsystemic signs) may beassociated with suchlow levels. If PCT ismeasured very earlyafter a bacterialchallenge (usually <6hours), these valuesmay still be low. Inthis case PCT shouldbe re-assessed 6-24hours later. PCT >0.5 and : Systemic infection: Moderate risk for<= 2 ng/mL : (sepsis) is : progression to severepossible, but : systemic infection.other conditions : The patient should beare known to : closely monitoredelevate PCT. : both clinically andby re-assessing PCTwithin 6-24 hours. PCT > 2 ng/mL : Systemic infection: High risk for(sepsis) is likely: progression to severeunless other : systemic infection.causes are known. : PCT >= 10 ng/mL : Important systemic: High likelihood ofinflammatory : severe sepsis orresponse, almost : septic shock.exclusively due to:severe bacterial :sepsis or septic :shock. : CHEM 13 PANEL: (LUIS E: 01/12/2017 00:17) ( MsgRcvd 01/12/2017 00:49) Final results Test Result Flag Units (Reference) GLUCOSE 116 H mg/dL (70-110) BUN 15 mg/dL (7-18) CREATININE 1.1 mg/dL (0.6-1.3) Estimated GFR >60 mL/min Estimated GFR- >60 mL/min Note: Persistent reduction over 3 months in eGFR<60 mL/min/1.73 m2 defines CKD. Patients with eGFR values>=60 mL/min/1.73 m2 may also have CKD if evidence ofpersistent proteinuria. Additional information may be foundat www.[email or web address].org. SODIUM 141 mmol/L (136-145) POTASSIUM 3.8 mmol/L (3.5-5.1) CHLORIDE 105 mmol/L (98-107) CARBON DIOXIDE 28 mmol/L (21-32) CALCIUM 9.2 mg/dL (8.5-10.1) TOTAL PROTEIN 7.0 g/dL (6.4-8.2) ALBUMIN 3.4 g/dL (3.3-5.0) BILIRUBIN, TOTAL 0.6 mg/dL (0.0-1.0) ALKALINE PHOSPHATASE 91 U/L (46-116) AST (SGOT) 13 L U/L (15-37) ALT (SGPT) 19 U/L (12-78) CPK 119 U/L (24-260) MAGNESIUM 1.8 mg/dL (1.8-2.4) TROPONIN I <0.05 ng/mL (0.00-1.5) TROPONIN REFERENCE RANGE:<0.1 NEGATIVE0.1-1.5 INDETERMINANT>1.5 POSITIVE . 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 PROGRESS AND PROCEDURES Course of Care: Heplock Toradol 30 mg IV Ativan 0.5 mg Iv Patient is stable. Symptoms much better. Pt likely had confusion related to the prior medications. Patient/family counseled. Old medical records ordered. Disposition: Discharged. Condition: stable and improved. CLINICAL IMPRESSION Severe DJD of the neck. INSTRUCTIONS Wear soft neck collar until better. (Stop the baclofen). Warnings: Further evaluation is necessary. SEDATIVE MEDICATION: You were given sedative medication during your visit. Do not drive or operate dangerous machinery. GENERAL WARNINGS: Return or contact your physician immediately if your condition worsens or changes unexpectedly, if not improving as expected, or if other problems arise. Prescription Medications: Naprosyn 500 mg tablets: take 1 orally every 12 hours as needed for pain. Dispense twenty (20). No refills. Substitution is permissible. Ativan 0.5 mg: take 1-2 orally every 6 hours as needed. Dispense twenty (20). No refill. (for pain) Follow-up: Follow up with your doctor Wednesday in four days. Call for the next available appointment. Understanding of the discharge instructions verbalized by patient and family. Discharge instructions reviewed with and understanding was verbalized by spouse. (Electronically signed by Theo Joiner MD 01/14/2017 17:50)
--- NOTE | 2017-01-12 04:01 | DIAGNOSTIC IMAGING REPORT ---
PROCEDURE: CT HEAD WITHOUT CONTRAST INDICATION: HEADACHE TECHNIQUE: Noncontrast axial images with sagittal and coronal reformations. Preliminary report provided by Emir Chapin MD ([facility]). COMPARISON: None. FINDINGS: Brain and ventricles are normal. No evidence of an acute process or hemorrhage. Carotid and vertebral vascular calcifications. Sinuses and mastoids are normal. IMPRESSION: 1. Negative head CT. 2. Preliminary report provided to Dr. Joiner. All CT scans at this facility use dose modulation, iterative reconstruction, and/or weight-based dosing when appropriate to reduce radiation dose to as low as reasonably achievable.
--- NOTE | 2017-01-12 04:01 | DIAGNOSTIC IMAGING REPORT ---
PROCEDURE: CT HEAD WITHOUT CONTRAST INDICATION: HEADACHE TECHNIQUE: Noncontrast axial images with sagittal and coronal reformations. Preliminary report provided by Emir Chapin MD ([facility]). COMPARISON: None. FINDINGS: Brain and ventricles are normal. No evidence of an acute process or hemorrhage. Carotid and vertebral vascular calcifications. Sinuses and mastoids are normal. IMPRESSION: 1. Negative head CT. 2. Preliminary report provided to Dr. Joiner. All CT scans at this facility use dose modulation, iterative reconstruction, and/or weight-based dosing when appropriate to reduce radiation dose to as low as reasonably achievable.
--- NOTE | 2017-01-12 08:46 | DIAGNOSTIC IMAGING REPORT ---
PROCEDURE: CT CERVICAL SPINE W/O CONTRAST INDICATION: Severe neck pain and headache. No history of trauma. TECHNIQUE: Noncontrast axial images with sagittal and coronal reformations. Preliminary report provided by Emir Chapin MD ([facility]). COMPARISON: None. FINDINGS: There are moderate to marked degenerative change of the cervical spine. C1-2: Moderate to marked degenerative changes with narrowing of the C1 - odontoid articulation and dystrophic calcification. C2-3: Moderate to marked right C2-3 facet disease (possibly fused). Mild left facet disease. C3-4: Moderate to marked right C3-4 facet disease. Mild narrowing of the neural foramina. C4-5: Moderate to marked right and mild left facet disease. C5-6: Moderately chronically bulging disc and facet disease with mild narrowing of central canal neural foramina. C6-7: Moderately chronically bulging disc and mild facet disease. Overall, these change result in moderate narrowing of the neural foramina. C7-T1: Marked disc space narrowing with subchondral degenerative cysts of the C7 superior endplate. Moderate right and mild left facet disease. No evidence of acute process or fracture. IMPRESSION: 1. Moderate to marked degenerative changes. 2. Findings discussed with Dr. Theo Joiner. All CT scans at this facility use dose modulation, iterative reconstruction, and/or weight-based dosing when appropriate to reduce radiation dose to as low as reasonably achievable.
--- NOTE | 2017-01-14 17:50 | ED MAR SUMMARY ---
..... Medication Administration Record [facility] [address] [place] [address] Patient: FABY SOFIA Visit ID: [id number] 71y, M Weight: 77.1 kg Height/Length: 70 in BMI: 24.4 ALLERGIES: No Known Drug Allergy Given 00:01/12/2017 Karla, R.N. Medication Administered: TORADOL [IVP], Dose: 30 mg IVP, Site: #1 right AC. Medication Ordered: Toradol IV 30 mg (NOW). Given 00:01/12/2017 Karla, R.N. Medication Administered: ATIVAN [IVP] (LORAZEPAM), Dose: 0.5 mg IVP, Site: #1 right AC. Medication Ordered: Ativan IV 0.5 mg (NOW).
--- NOTE | 2017-01-14 17:50 | ED DISCHARGE INSTRUCTIONS ---
Patient: FABY SOFIA General Instructions [facility] VisitID: [id number] [place] [address] 71y, M Registration Date/Time: 01/11/2017 Severe DJD of the neck. INSTRUCTIONS Wear soft neck collar until better. (Stop the baclofen). Warnings: Further evaluation is necessary. SEDATIVE MEDICATION: You were given sedative medication during your visit. Do not drive or operate dangerous machinery. GENERAL WARNINGS: Return or contact your physician immediately if your condition worsens or changes unexpectedly, if not improving as expected, or if other problems arise. Prescription Medications: Naprosyn 500 mg tablets: take 1 orally every 12 hours as needed for pain. Dispense twenty (20). No refills. Substitution is permissible. Ativan 0.5 mg: take 1-2 orally every 6 hours as needed. Dispense twenty (20). No refill. (for pain) Follow-up: Follow up with your doctor Wednesday in four days. Call for the next available appointment. Understanding of the discharge instructions verbalized by patient and family. Discharge instructions reviewed with and understanding was verbalized by spouse. ADDITIONAL INFORMATION Cervical Collar A cervical collar is used to provide support and limit movement of the neck. It is usually provided after a moderate to severe neck sprain. Home Use: Unless told otherwise, the collar should be worn whenever you are out of bed. It may be taken off for sleep and for bathing. When lying down, support your neck with a small pillow or rolled up towel under the neck. When adjusting your pillows, try to keep the neck in a neutral position (in line with the upper back). Pillows should not be so thick as to bend your head forward. Do not wear the collar longer than advised by your doctor. This may lead to further stiffness from lack of neck movement. Get Prompt Medical Attention if any of the following occur: Increasing pain in the neck Weakness or numbness in the arms or hands Pain spreading from the neck into the shoulder or arms Fever of 100.4F(38C) or higher, or as directed by your healthcare provider Lorazepam Oral tablet What is this medicine? LORAZEPAM (jada A ze catrachito) is a benzodiazepine. It is used to treat anxiety. How should I use this medicine? Take this medicine by mouth with a glass of water. Follow the directions on the prescription label. If it upsets your stomach, take it with food or milk. Take your medicine at regular intervals. Do not take it more often than directed. Do not stop taking except on the advice of your doctor or health resident care associate. Talk to your supervisor spinning regarding the use of this medicine in children. Special care may be needed. What side effects may I notice from receiving this medicine? Side effects that you should report to your doctor or health resident care associate as soon as possible: changes in vision confusion depression mood changes, excitability or aggressive behavior movement difficulty, staggering or jerky movements muscle cramps restlessness weakness or tiredness Side effects that usually do not require medical attention (report to your doctor or health resident care associate if they continue or are bothersome): constipation or diarrhea difficulty sleeping, nightmares dizziness, drowsiness headache nausea, vomiting What may interact with this medicine? barbiturate medicines for inducing sleep or treating seizures, like phenobarbital clozapine medicines for depression, mental problems or psychiatric disturbances medicines for sleep phenytoin probenecid theophylline valproic acid What if I miss a dose? If you miss a dose, take it as soon as you can. If it is almost time for your next dose, take only that dose. Do not take double or extra doses. Where should I keep my medicine? Keep out of the reach of children. This medicine can be abused. Keep your medicine in a safe place to protect it from theft. Do not share this medicine with anyone. Selling or giving away this medicine is dangerous and against the law. Store at room temperature between 20 and 25 degrees C (68 and 77 degrees F). Protect from light. Keep container tightly closed. Throw away any unused medicine after the expiration date. What should I tell my health care provider before I take this medicine? They need to know if you have any of these conditions: alcohol or drug abuse problem bipolar disorder, depression, psychosis or other mental health condition glaucoma kidney or liver disease lung disease or breathing difficulties myasthenia gravis Parkinson's disease seizures or a history of seizures suicidal thoughts an unusual or allergic reaction to lorazepam, other benzodiazepines, foods, dyes, or preservatives or trying to get breast-feeding What should I watch for while using this medicine? Visit your doctor or health resident care associate for regular checks on your progress. Your body may become dependent on this medicine, ask your doctor or health resident care associate if you still need to take it. However, if you have been taking this medicine regularly for some time, do not suddenly stop taking it. You must gradually reduce the dose or you may get severe side effects. Ask your doctor or health resident care associate for advice before increasing or decreasing the dose. Even after you stop taking this medicine it can still affect your body for several days. You may get drowsy or dizzy. Do not drive, use machinery, or do anything that needs mental alertness until you know how this medicine affects you. To reduce the risk of dizzy and fainting spells, do not stand or sit up quickly, especially if you are an older patient. Alcohol may increase dizziness and drowsiness. Avoid alcoholic drinks. Do not treat yourself for coughs, colds or allergies without asking your doctor or health resident care associate for advice. Some ingredients can increase possible side effects. You have been given the following additional information: Cervical Collar Lorazepam Oral tablet (Electronically signed by Theo Joiner MD 01/14/2017 17:50)
--- NOTE | 2017-01-14 17:50 | ED DISCHARGE INSTRUCTIONS ---
Patient: FABY SOFIA General Instructions [facility] VisitID: [id number] [place] [address] 71y, M Registration Date/Time: 01/11/2017 Severe DJD of the neck. INSTRUCTIONS Wear soft neck collar until better. (Stop the baclofen). Warnings: Further evaluation is necessary. SEDATIVE MEDICATION: You were given sedative medication during your visit. Do not drive or operate dangerous machinery. GENERAL WARNINGS: Return or contact your physician immediately if your condition worsens or changes unexpectedly, if not improving as expected, or if other problems arise. Prescription Medications: Naprosyn 500 mg tablets: take 1 orally every 12 hours as needed for pain. Dispense twenty (20). No refills. Substitution is permissible. Ativan 0.5 mg: take 1-2 orally every 6 hours as needed. Dispense twenty (20). No refill. (for pain) Follow-up: Follow up with your doctor Wednesday in four days. Call for the next available appointment. Understanding of the discharge instructions verbalized by patient and family. Discharge instructions reviewed with and understanding was verbalized by spouse. ADDITIONAL INFORMATION Cervical Collar A cervical collar is used to provide support and limit movement of the neck. It is usually provided after a moderate to severe neck sprain. Home Use: Unless told otherwise, the collar should be worn whenever you are out of bed. It may be taken off for sleep and for bathing. When lying down, support your neck with a small pillow or rolled up towel under the neck. When adjusting your pillows, try to keep the neck in a neutral position (in line with the upper back). Pillows should not be so thick as to bend your head forward. Do not wear the collar longer than advised by your doctor. This may lead to further stiffness from lack of neck movement. Get Prompt Medical Attention if any of the following occur: Increasing pain in the neck Weakness or numbness in the arms or hands Pain spreading from the neck into the shoulder or arms Fever of 100.4F(38C) or higher, or as directed by your healthcare provider Lorazepam Oral tablet What is this medicine? LORAZEPAM (jada A ze catrachito) is a benzodiazepine. It is used to treat anxiety. How should I use this medicine? Take this medicine by mouth with a glass of water. Follow the directions on the prescription label. If it upsets your stomach, take it with food or milk. Take your medicine at regular intervals. Do not take it more often than directed. Do not stop taking except on the advice of your doctor or health long term care administrator. Talk to your ceo & co founder regarding the use of this medicine in children. Special care may be needed. What side effects may I notice from receiving this medicine? Side effects that you should report to your doctor or health long term care administrator as soon as possible: changes in vision confusion depression mood changes, excitability or aggressive behavior movement difficulty, staggering or jerky movements muscle cramps restlessness weakness or tiredness Side effects that usually do not require medical attention (report to your doctor or health long term care administrator if they continue or are bothersome): constipation or diarrhea difficulty sleeping, nightmares dizziness, drowsiness headache nausea, vomiting What may interact with this medicine? barbiturate medicines for inducing sleep or treating seizures, like phenobarbital clozapine medicines for depression, mental problems or psychiatric disturbances medicines for sleep phenytoin probenecid theophylline valproic acid What if I miss a dose? If you miss a dose, take it as soon as you can. If it is almost time for your next dose, take only that dose. Do not take double or extra doses. Where should I keep my medicine? Keep out of the reach of children. This medicine can be abused. Keep your medicine in a safe place to protect it from theft. Do not share this medicine with anyone. Selling or giving away this medicine is dangerous and against the law. Store at room temperature between 20 and 25 degrees C (68 and 77 degrees F). Protect from light. Keep container tightly closed. Throw away any unused medicine after the expiration date. What should I tell my health care provider before I take this medicine? They need to know if you have any of these conditions: alcohol or drug abuse problem bipolar disorder, depression, psychosis or other mental health condition glaucoma kidney or liver disease lung disease or breathing difficulties myasthenia gravis Parkinson's disease seizures or a history of seizures suicidal thoughts an unusual or allergic reaction to lorazepam, other benzodiazepines, foods, dyes, or preservatives or trying to get breast-feeding What should I watch for while using this medicine? Visit your doctor or health long term care administrator for regular checks on your progress. Your body may become dependent on this medicine, ask your doctor or health long term care administrator if you still need to take it. However, if you have been taking this medicine regularly for some time, do not suddenly stop taking it. You must gradually reduce the dose or you may get severe side effects. Ask your doctor or health long term care administrator for advice before increasing or decreasing the dose. Even after you stop taking this medicine it can still affect your body for several days. You may get drowsy or dizzy. Do not drive, use machinery, or do anything that needs mental alertness until you know how this medicine affects you. To reduce the risk of dizzy and fainting spells, do not stand or sit up quickly, especially if you are an older patient. Alcohol may increase dizziness and drowsiness. Avoid alcoholic drinks. Do not treat yourself for coughs, colds or allergies without asking your doctor or health long term care administrator for advice. Some ingredients can increase possible side effects. You have been given the following additional information: Cervical Collar Lorazepam Oral tablet (Electronically signed by Theo Joiner MD 01/14/2017 17:50)
--- NOTE | 2017-01-14 17:50 | ED MED RECONCILIATION SUMMARY ---
Patient: FABY SOFIA Medication Reconciliation Report [facility] VisitID: [id number] [address] [place] [address] 71y, M Registration Date/Time: 01/11/2017 Weight: 77.1 kg Height/Length: 70 in. BMI: 24.4 ALLERGIES: No Known Drug Allergy The patient's Home Medications are listed below: THE FOLLOWING MEDICATIONS NEED TO BE RECONCILED: AmLODIPine Besylate Oral ASA Oral Atorvastatin Calcium Oral Lisinopril-Hydrochlorothiazide Oral Metoprolol Tartrate Oral The source(s) of the original Home Medication information: Not obtained. The following Medications were given to the patient in the Emergency Department: Toradol [IVP] IVP 30 mg, administered: 01/12/2017 12:22:00 AM Ativan [IVP] IVP 0.5 mg, administered: 01/12/2017 12:22:00 AM The following Medications were prescribed to the patient: Naprosyn 500 mg tablets: take 1 orally every 12 hours as needed for pain. Dispense twenty (20). No refills. Substitution is permissible. -- Theo Joiner MD Ativan 0.5 mg: take 1-2 orally every 6 hours as needed. Dispense twenty (20). No refill.(for pain) -- Theo Joiner MD
--- NOTE | 2017-01-14 17:50 | ED MED RECONCILIATION SUMMARY ---
Patient: FABY SOFIA Medication Reconciliation Report [facility] VisitID: [id number] [address] [place] [address] 71y, M Registration Date/Time: 01/11/2017 Weight: 77.1 kg Height/Length: 70 in. BMI: 24.4 ALLERGIES: No Known Drug Allergy The patient's Home Medications are listed below: THE FOLLOWING MEDICATIONS NEED TO BE RECONCILED: AmLODIPine Besylate Oral ASA Oral Atorvastatin Calcium Oral Lisinopril-Hydrochlorothiazide Oral Metoprolol Tartrate Oral The source(s) of the original Home Medication information: Not obtained. The following Medications were given to the patient in the Emergency Department: Toradol [IVP] IVP 30 mg, administered: 01/12/2017 12:22:00 AM Ativan [IVP] IVP 0.5 mg, administered: 01/12/2017 12:22:00 AM The following Medications were prescribed to the patient: Naprosyn 500 mg tablets: take 1 orally every 12 hours as needed for pain. Dispense twenty (20). No refills. Substitution is permissible. -- Theo Joiner MD Ativan 0.5 mg: take 1-2 orally every 6 hours as needed. Dispense twenty (20). No refill.(for pain) -- Theo Joiner MD
--- NOTE | 2017-01-14 17:50 | ED MAR SUMMARY ---
..... Medication Administration Record [facility] [address] [place] [address] Patient: FABY SOFIA Visit ID: [id number] 71y, M Weight: 77.1 kg Height/Length: 70 in BMI: 24.4 ALLERGIES: No Known Drug Allergy Given 00:01/12/2017 Karla, R.N. Medication Administered: TORADOL [IVP], Dose: 30 mg IVP, Site: #1 right AC. Medication Ordered: Toradol IV 30 mg (NOW). Given 00:01/12/2017 Karla, R.N. Medication Administered: ATIVAN [IVP] (LORAZEPAM), Dose: 0.5 mg IVP, Site: #1 right AC. Medication Ordered: Ativan IV 0.5 mg (NOW).
== END 2017-01-12 01:45 | disposition home or self-care (01) ==
LOC: ED SRH 23:24
DX: M47.892 Other spondylosis, cervical region (principal); Z79.899 Other long term (current) drug therapy; I10 Essential (primary) hypertension; E78.00 Pure hypercholesterolemia, unspecified; Z79.82 Long term (current) use of aspirin; F17.210 Nicotine dependence, cigarettes, uncomplicated
CPT/HCPCS: 90065; 90100; 90616; 91585; 92610; 92720; 93004; 95059; 95150